=== PATIENT | male | born 1945 | race Caucasian/White ===

== ENCOUNTER 2016-12-10 10:13 | Outpatient (CLI) | payer OTHER ==
[~2016-12-10 10:13] MED LIST: ADVIL200 M1 PO; ASPIRIN EC81 MG PO; CLARITIN D PO; FLOMAX0.4 MG PO; HYDROCHLOROTHIA25 MG PO; LISINOPRIL10 MG PO; MULTIPLE VITAMIN PO; NITROSTAT0.4 MG SL; PERCOCET1 TA1 PO; PRINIVIL5 MG PO; PROTONIX40 MG PO; SIMVASTATIN40 MG PO; VITAMIN D-31000 UNIT PO
--- NOTE | 2016-12-10 11:32 | DIAGNOSTIC IMAGING REPORT ---
PROCEDURE: CT THORAX WITH CONTRAST INDICATION: LUNG CANCER TECHNIQUE: of Isovue 300 was injected intravenously and axial images were obtained of the chest with coronal and sagittal reformations. COMPARISON: Left chest wall ultrasound 11/13/2016 CT chest/abdomen/pelvis 10/06/2016. FINDINGS: Status post left upper lobectomy. Progression of 2.2 cm (previously 1.5 cm) right lower lobe superior segment necrotic nodule. There are no new pulmonary nodules. Decreasing small left pleural effusion. There has been reaccumulation of the fluid in the 11.5 cm left chest wall cystic mass ( previously 10.2 cm). There is partial bony erosion of the left seventh and eighth ribs. Stable right-sided Port-A-Cath. Minor atherosclerosis of the aorta. Dense coronary atherosclerosis. Heart size is normal . No pericardial effusion. Mild to moderate hiatal hernia containing fat. IMPRESSION: 1. Status post left upper lobectomy with improved small left pleural effusion 2. Progression of right lower lobe necrotic mass suspicious for metastatic lesion 3. Progression of left chest wall cystic mass with erosion of the left seventh and eighth ribs
== END 2016-12-10 23:00 ==
LOC: CT SRH 10:13
DX: C34.92 Malignant neoplasm of unspecified part of left bronchus or lung (principal); R22.2 Localized swelling, mass and lump, trunk; J90 Pleural effusion, not elsewhere classified

== ENCOUNTER 2016-12-16 23:03 | Inpatient (IN) | payer OTHER ==
[~2016-12-16] VITALS: Ht 182.9 cm; Wt 122.5 kg
[2016-12-17] VITALS (17 sets, daily range): BP systolic 75–113; BP diastolic 41–56
--- NOTE | 2016-12-17 00:48 | DIAGNOSTIC IMAGING REPORT ---
PROCEDURE: XR CHEST 1 VIEW INDICATION: CHEST PAIN, initial encounter TECHNIQUE: Portable AP view 11:50 p.m. COMPARISON: Chest x-ray 08/04/2016 FINDINGS: Right subclavian Port-A-Cath with the tip in the subclavian vein. Left upper lobectomy. Poor inspiration with mild bibasilar atelectasis. Heart size and part vessels are normal. Thorax is normal. IMPRESSION: 1. Left upper lobectomy 2. Poor inspiration with bibasilar atelectasis 3. Stable right subclavian catheter with the tip in the subclavian vein
--- NOTE | 2016-12-17 05:08 | ED CLINICAL REPORT ---
Clinical Report - Physicians/Mid Levels [facility] [address] [place] [address] 12/16/2016 23:03 Patient: JONES YOUNG Time Seen: 23:15. Arrived- By private vehicle. Historian- patient. History limited by vague historian. HISTORY OF PRESENT ILLNESS Chief Complaint: FEVER and CHILLS. This started last night and is still present. It was abrupt in onset and has been constant. (patient has a history of lung cancer which his believes is a type of squamous cell cancer. He was diagnosed with this 5 or 6 months ago. Initially, he did a course of chemotherapy with uncertain agents that was not successful. He then did a course of immune therapy also with limited results he has now been started on a new chemotherapeutic agent and had his first treatment yesterday. He has been feeling "shaky" weak and has had chills and sweats.). REVIEW OF SYSTEMS The patient has had fever and chills and experienced sweats. No calf pain, pedal edema, palpitations, abdominal pain or constipation. No diarrhea, nausea or vomiting. He has had a moderate nonproductive cough. All systems otherwise negative, except as recorded above. PAST HISTORY PCP - [facility]. Problems: Cancer. Tension-Type Headache. Chest Pain. Gastroesophageal Reflux. Benign Prostatic Hypertrophy. Hypercholesterolemia. Hypertension. Syncope. Lower Extremity Pain. Gastroesophageal Reflux Disease. Additional Surgeries: Cardiac Catheterization. Coronary Artery Bypass Graft. Hemorrhoidectomy. Hernia Repair. Knee Prosthesis. Knee Surgery. Stent. Total Knee 09/13. Umbilical Hernia Repair. Medications: Tamsulosin HCl Oral 0.4 mg, at bedtime. Vit D3 - 2000iu daily . ASA 81 mg, daily. Claritin-D 24 Hour Oral. Hydrochlorothiazide Oral 25 mg, daily. Ibuprofen Oral 400 mg, PRN, last dose 0530. Lisinopril Oral 20 mg, in an and 10mg in pm. Protonix Oral 40 mg, daily. Simvastatin Oral 40 mg, at bedtime. Allergies: Aluminum. (hives, welts) Doxycycline.(hives) PCN.(hives). SOCIAL HISTORY Smoker- current status unknown. No alcohol use or drug use. Is a local resident. He lives with spouse. FAMILY HISTORY Heart disease in first-degree relative (mother); cancer in first-degree relative (sibling). ADDITIONAL NOTES The nursing notes have been reviewed. PHYSICAL EXAM Vital Signs: 12/16/2016 23:10 BP: 103/58. HR: 130. RR: 32. O2 saturation: 94%. Temp: 98.5 F. Have been reviewed. Appearance: Alert. Eyes: Pupils equal, round and reactive to light. ENT: Extensive dental decay. Pharynx normal. Neck: Neck supple. CVS: Normal heart rate and rhythm. Heart sounds normal. Respiratory: No respiratory distress. Breath sounds normal. Abdomen: No visible injury. Soft and nontender. Bowel sounds normal. No organomegaly. No mass. Obese. Back: Normal inspection. Skin: Skin warm and dry. (patient was noted to have a large softball sized tender mass without erythema or increased warmth over the left chest wall at the anterior axillary line). Extremities: Extremities exhibit normal ROM. No calf tenderness. LABS, X-RAYS, AND EKG EKG: Normal sinus rhythm. Rate: 78. Q waves in lead II, III and aVF. Non-specific ST segment / T wave abnormalities. EKG unchanged when compared with prior EKG. (no significant changes when compared with 04 August 2016). The study has been independently viewed by me. Chest X-ray: Mildly elevated hemidiaphragm on the left (S/P L upper lobectomy). (Port-A-Cath in place). Technique: poor inspiration, rotated. The X-rays were independently viewed by me. A comparison with prior films reveals that the findings are unchanged. Laboratory Tests: CPK: (NIC: 12/17/2016 00:01) ( MsgRcvd 12/17/2016 04:51) Final results Test Result Flag Units (Reference) CPK 44 U/L (24-260) TROPONIN I <0.05 L ng/mL (0.00-1.5) TROPONIN REFERENCE RANGE:<0.1 NEGATIVE0.1-1.5 INDETERMINANT>1.5 POSITIVE Lactate, Serum: (NIC: 12/17/2016 00:15) ( MsgRcvd 12/17/2016 00:56) Final results Test Result Flag Units (Reference) LACTIC ACID 1.4 mmol/L (0.4-2.0) UA-Culture if indicated: (NIC: 12/16/2016 03:48) ( [facility] 12/17/2016 04:02) Final results Test Result Flag Units (Reference) URINE COLOR YELLOW URINE APPEARANCE CLEAR URINE GLUCOSE NEGATIVE (NEGATIVE) URINE BILIRUBIN NEGATIVE (NEGATIVE) URINE KETONE NEGATIVE (NEGATIVE) URINE SPECIFIC GRAVITY 1.025 (1.010-1.030) URINE PH 5.5 (5.0-8.0) URINE PROTEIN TRACE (NEGATIVE) URINE UROBILINOGEN 0.2 EU/dL (0.2-1.0) URINE NITRITE NEGATIVE (NEGATIVE) URINE BLOOD 2+ (NEGATIVE) URINE LEUK ESTERASE NEGATIVE (NEGATIVE) URINE RBC 3-5 rbc/hpf (0-1) URINE WBC 0-1 wbc/hpf (0-1) URINE EPITHELIAL CELLS RARE EPI/hpf (0-5) URINE BACTERIA TRACE (<1+) (NONE SEEN) URINE COMMENT CULT NOT INDICATED 1+ MUCUSURINE CULTURES ARE SET-UP BASED ON THE FOLLOWING CRITERIA:POSITIVE NITRITEPOSITIVE LEUKOCYTE ESTERASEGREATER THAN 10 WHITE BLOOD CELLSMODERATE (2+) OR GREATER BACTERIA CBC w Diff: (NIC: 12/16/2016 23:30) ( [facility] 12/17/2016 02:40) Final results Test Result Flag Units (Reference) WHITE BLOOD COUNT 18.7 H K/uL (4.5-11.5) RED BLOOD COUNT 4.54 M/uL (4.50-5.90) HEMOGLOBIN 12.1 L gm/dL (13.5-17.5) HEMATOCRIT 37.1 L % (41.0-53.0) MEAN CELL VOLUME 82 fL (80-100) MEAN CORPUSCULAR HGB 27 pg (26-34) MEAN CORPUSCULAR HGB CONC 33 g/dL (31-37) RED CELL DISTRIBUTION WIDTH 14.2 % (11.6-14.8) PLATELET COUNT 317 K/uL (150-400) LYMPH % 5.5 L % (25-40) MONO % 2.3 L % (3-14) GRANULOCYTE % 92.2 POLY % 90 H % (50-75) BAND % 3 % (0-8) LYMPH 6 L % (25-40) MONO 1 L % (3-14) EOSINOPHIL % 0 % (0-4) BASOPHIL % 0 % (0-2) METAMYELOCYTE % 0 % (0-1) MYELOCYTE 0 % (0-1) OTHER CELL TYPE 0 PT with INR: (NIC: 12/16/2016 23:30) ( [facility] 12/16/2016 23:44) Final results Test Result Flag Units (Reference) INR 1.0 (0.8-1.2) Low Intensity Therapy: INR 1.5-2.0 PT range 18.5-23.1Mod.Intensity Therapy: INR 2.0-3.0 PT range 23.1-31.5High Intensity Therapy: INR 2.5-3.5 PT range 27.4-35.5High Intensity Therapy 2: INR 3.0-4.0 PT range 31.5-39.3 APTT 30 SECONDS (24-34) CMP: (NIC: 12/16/2016 23:30) ( [facility] 12/16/2016 23:53) Final results Test Result Flag Units (Reference) GLUCOSE 103 mg/dL (70-110) BUN 16 mg/dL (7-18) CREATININE 1.2 mg/dL (0.6-1.3) Estimated GFR >60 mL/min Estimated GFR- >60 mL/min Note: Persistent reduction over 3 months in eGFR<60 mL/min/1.73 m2 defines CKD. Patients with eGFR values>=60 mL/min/1.73 m2 may also have CKD if evidence ofpersistent proteinuria. Additional information may be foundat www.[email or web address].org. SODIUM 134 L mmol/L (136-145) POTASSIUM 3.5 mmol/L (3.5-5.1) CHLORIDE 103 mmol/L (98-107) CARBON DIOXIDE 25 mmol/L (21-32) CALCIUM 8.7 mg/dL (8.5-10.1) TOTAL PROTEIN 6.3 L g/dL (6.4-8.2) ALBUMIN 2.7 L g/dL (3.3-5.0) BILIRUBIN, TOTAL 0.4 mg/dL (0.0-1.0) ALKALINE PHOSPHATASE 81 U/L (46-116) AST (SGOT) 20 U/L (15-37) ALT (SGPT) 22 U/L (12-78) LIPASE 90 U/L (73-393) AMYLASE 21 L U/L (25-115) . PROGRESS AND PROCEDURES Course of Care: Patient is stable. Critical care performed (100 minutes). Time includes: direct patient care, patient reassessment, coordination of patient care, interpretation of data (laboratory data, pulse oximetry, chest xrays and prior electrocardiograms), review of patient's medical records, medical consultation, family consultation regarding treatment decisions and documentation of patient care. Discussed case with hospitalist, (Cinthya). Reviewed test results and need for additional work-up. Agreed upon treatment plan, need for patient follow-up and decision to admit. Health care provider will see patient in hospital. Consult obtained from oncology. Dr Carpenter for [facility]. Case discussed. Phone consult only. Additional history sought. Dr. Carpenter he says that the patient's chemotherapy is Taxotere. Old medical records ordered. Disposition orders written (in [employer]). Disposition: Admitted to the Critical Care Unit. CLINICAL IMPRESSION Hypotension. Hypovolemia. Leukocytosis. Lung cancer. (Electronically signed by Miguel A Marroquin MD 12/17/2016 7:58)
--- NOTE | 2016-12-17 05:08 | ED ORDER SUMMARY ---
..... Patient: JONES YOUNG OrderSheet [facility] VisitID: [id number] [address] [place] [address] 71y, M Registration Date/Time: 12/16/2016 ORDER SHEET Weight: 115.6 kg Allergies: Aluminum, Doxycycline, PCN GENERAL ORDERS: CBC w Diff Urgent (23:15 12/16/2016 Xochitl AUGUSTE) (Ack 23:17 Emmy ER Tech1) (23:37 EBonham) CMP Urgent (23:15 12/16/2016 Xochitl AUGUSTE) (Ack 23:17 Josepha ER Tech1) (23:37 EBonham) PT with INR Urgent (23:15 12/16/2016 Xochitl AUGUTSE) (Ack 23:17 Emmy ER TechTara) (23:37 EBonham) PTT Urgent (23:15 12/16/2016 Xochitl AUGUSTE) (Ack 23:17 Emmy ER TechTara) (23:37 EBonham) Amylase Urgent (23:15 12/16/2016 Xochitl AUGUSTE) (Ack 23:17 Emmy ER Tech1) (23:37 EBonham) Lipase Urgent (23:15 12/16/2016 Xochitl AUGUSTE) (Ack 23:17 Emmy ER Tech1) (23:37 EBonham) UA-Culture if indicated Urgent (23:15 12/16/2016 Xochitl AUGUSTE) (Ack 23:17 Josepha ER Tech1) (3:56 EBonham) Blood Culture (No) (N/A) Urgent (23:40 12/16/2016 Xochitl AUGUSTE) (Ack 23:45 AMcQuoid ER Tech1) (4:27 AMcQuoid ER Tech1) Chest 1V Urgent (23:49 12/16/2016 Xochitl AUGUSTE) (Ack 23:50 AMcQuoid ER Tech1) (0:07 [place]) Lactate, Serum Urgent (00:05 12/17/2016 Xochitl AUGUSTE) (Ack 0:06 AMcQuoid ER Tech1) (4:27 AMcQuoid ER Tech1) Vitals - Orthostatic (00:10 12/17/2016 Xochitl AUGUSTE) (0:13 EBonham) - (manual differential) (02:05 12/17/2016 Xochitl AUGUSTE) (2:06 AMcQuoid ER Tech1) CPK Urgent (04:28 12/17/2016 Xochitl AUGUSTE) (Ack 4:34 AMcQuoid ER Tech1) (5:02 AMcQuoid ER Tech1) Troponin-I Urgent (04:28 12/17/2016 Xochitl AUGUSTE) (Ack 4:34 AMcQuoid ER Tech1) (5:02 AMcQuoid ER Tech1) EKG - ER Stat (04:28 12/17/2016 Xochitl AUGUSTE) (Ack 4:30 AMcQuoid ER Tech1) (5:02 AMcQuoid ER Tech1) PCT (Procalcitonin) Urgent (05:07 12/17/2016 Xochitl AUGUSTE) (Ack 5:10 TLewis R.N.) CRP Urgent (05:07 12/17/2016 Xochitl AUGUSTE) (Ack 5:12 AMcQuoid ER Tech1) MEDICATION ORDERS: IV FLUIDS: IV Saline Lock (23:15 12/16/2016 Xochitl AUGUSTE) (Ack 23:30 RCollier R.N.) (23:37 EBonham) Dilaudid IV 1 mg (HIGH ALERT MEDICATION, NOW) (23:56 12/16/2016 Xochitl AUGUSTE) (0:12 EBonham) Zofran IV 4 mg (NOW) (23:56 12/16/2016 Xochitl AUGUSTE) (0:12 EBonham) IV NS : initial bolus 500 mL (1000 mL/hr), then 125 mL/hr for 4h (NOW); Urgent (23:56 12/16/2016 Xochitl AUGUSTE) (0:13 EBonham) (Cancelled: Other1:39 Xochitl AUGUSTE) IV NS : initial bolus 500 mL (1000 mL/hr), then 1000 mL/hr for X1 (NOW); Stat (01:39 12/17/2016 Chai verbal order read back to Xochitl AUGUSTE) (1:46 EBonham) IV NS : initial bolus 1000 mL (1000 mL/hr), then 1000 mL/hr for 4h (NOW); Urgent (01:41 12/17/2016 Xochitl AUGUSTE) (1:45 EBonham) IV NS with Normal Saline 1 Liter: initial bolus 1000 mL (1000 mL/hr), then 1000 mL/hr for X1 (NOW) (02:47 12/17/2016 Chai verbal order read back to Xochitl AUGUSTE) (2:48 Chai) Ceftriaxone IV 2 gm/50mL (NOW) (04:32 12/17/2016 Xochitl AUGUSTE) (Ack 4:34 RCollier R.N.) (4:54 Chai) IV NS with Normal Saline 1 Liter: initial bolus none -, then 150 mL/hr (NOW) (04:55 12/17/2016 Chai verbal order read back to Xochitl AUGUSTE) (4:57 Chai) ORDER SHEET NOTES: [Electronically signed by Olga Quinn (06:32 12/17/2016)] [Electronically signed by Miguel A Marroquin MD (07:58 12/17/2016)] [Electronically locked/signed by Olga Quinn (06:32 12/17/2016)]
--- NOTE | 2016-12-17 05:08 | ED NURSING NOTES ---
Clinical Report - Nurses [facility] [address] [place] [address] 12/16/2016 23:03 Patient: JONES YOUNG TRIAGE Triage time 2305. Acuity: LEVEL 3. Chief Complaint: FEVER, CHILLS, SWEATS and "NOT FEELING WELL" and FATIGUE, "HURTS ALL OVER" and LACK OF APPETITE. Alert. No acute distress. (pain). --23:13 Olga Quinn 23:10 12/16/16. BP: 103/58. HR: 130. RR: 32. O2 saturation: 94%. Temp: 98.5 F. Pain level now 08/25. --23:13 Olga Quinn. Weight: 115.6 kg. Height/Length: 72 inches. BMI: 34.6. --23:10 Olga Quinn. Medications ASA 81 mg, daily. Claritin-D 24 Hour Oral. Hydrochlorothiazide Oral 25 mg, daily. Ibuprofen Oral 400 mg, PRN, last dose 0530. Lisinopril Oral 20 mg, in an and 10mg in pm. Protonix Oral 40 mg, daily. Simvastatin Oral 40 mg, at bedtime. --23:11 Olga Quinn Tamsulosin HCl Oral 0.4 mg, at bedtime. Vit D3 - 2000iu daily . --23:11 Olga Quinn. Allergies Aluminum. (hives, welts) Doxycycline.(hives) PCN.(hives) --23:11 Olga Quinn. History Arrived by private vehicle. Historian: patient and family. Accompanied by family. This started last night. 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 (extra pain meds). PAST MEDICAL HX: Cancer. SOCIAL HX: Never smoker. 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 --23:14 Olga Quinn. PROBLEMS: Tension-Type Headache. Chest Pain. Gastroesophageal Reflux. Benign Prostatic Hypertrophy. Hypercholesterolemia. Hypertension. Immunizations. --23:12 Olga Quinn Cancer [Resolved]. --23:12 Olga Quinn. ADDITIONAL SURGERIES: Cardiac Catheterization. Coronary Artery Bypass Graft. Hemorrhoidectomy. Hernia Repair. Knee Prosthesis. Knee Surgery. Stent. Total Knee 09/13. Umbilical Hernia Repair. --23:12 Olga Quinn. Interventions ID band on patient. To treatment room. --23:13 Olga Quinn. PHYSICAL ASSESSMENT Ambulatory to room. GENERAL / NEURO / PSYCH: Alert. Oriented X 4. Appears in pain, anxious and in distress. HEENT: Pupils equal, round and reactive to light. Mucous membranes are pink. RESPIRATORY: Respirations not labored. Chest wall tenderness. Breath sounds within normal limits. CVS: Cardiac rhythm: sinus tachycardia. Capillary refill less than 2 seconds. Pulses within normal limits. GI / : Abdominal distention. Normal bowel sounds. SKIN: Skin intact. Skin is warm and dry. Normal skin turgor. --23:15 Olga Quinn. NURSING PROGRESS NOTES Patient gowned. Reassurance given. Call light placed in reach. Side rails up. Bed placed in lowest position. Brakes of bed on. Patient ready for evaluation- chart flagged and ED physician notified. --23:15 Olga Quinn 23:37 12/16/2016 Site #1 started via IV in the left forearm with an 20g angiocath, with aseptic technique and good blood return; one attempt. Blood drawn: rainbow set. Labeled in the presence of the patient and sent to the lab. Saline lock flushed with 10 mL saline. --23:37 Olga Quinn 00:12 12/17/2016 Dilaudid (HYDROmorphone HCl PF) IVP 1 mg given. via site #1. Allergies verified, confirmed 5 rights and sedative warning given to the patient and patient's family. IV patency established. IV site checked: no pain, redness, or swelling. IV flushed thoroughly pre- and post-medication administration. IVP given by RN. --00:12 Olga Quinn 00:12 12/17/2016 Zofran (Ondansetron HCl) IVP 4 mg given. via site #1. Allergies verified and confirmed 5 rights. IV patency established. IV site checked: no pain, redness, or swelling. IV flushed thoroughly pre- and post-medication administration. IVP given by RN. --00:12 Olga Quinn 00:13 12/17/2016 Started bag #1 500 mL IV Fluids IV NS (Saline); bolus of 500 mL over 30 minute(s) via site #1. Allergies verified and confirmed 5 rights. IV patency established. IV site checked: no pain, redness, or swelling. IV flushed thoroughly pre- and post-medication administration. --00:13 Olga Quinn ( Pt was sat upp rapidly for chest x ray, pt became pale diaphoretic, eyes rolled back, slow to respond, pt sts "I don't feel good", pt immediatley laid down, b/p 73/41 HR 110, pt some better after laying flat, b/p 86/48, IVF wide open, Provider made aware, Provider req full orthostatic vitals, RN suggested to use sitting as pt would be unable to stand). --00:15 Olga Quinn 00:15 12/17/16. BP: 73/41 taken while sitting. HR: 110. --00:16 Olga Quinn 00:16 12/17/16. BP: 86/48. HR: 89. --00:16 Olga Quinn ( Pt continues to remain hypotensive, 500ml bolus is in, still no improvement, pt very tired but will arouse to stimulation and is oriented when he awakes but keeps his eyes closed, 1 l NS hung to try to make progress on B/P). --00:43 Olga Quinn 00:39 12/17/16. BP: 90/48. HR: 90. RR: 12. O2 saturation: 94%. Pain level now 8/10. --00:43 Olga Quinn The patient is calm and resting quietly. --01:07 Olga Quinn 01:06 12/17/16. BP: 87/45. HR: 88. RR: 14. O2 saturation: 93%. --01:07 Olga Quinn 01:32 12/17/16. BP: 92/47 taken while lying. HR: 89. --01:32 Olga Quinn 01:32 12/17/16. BP: 90/48 taken while sitting. HR: 96. --01:32 Olga Quinn 01:32 12/17/16. BP: 93/40 taken while standing. HR: 105. --01:33 Olga Quinn ( Pt doing much better laying flat, more conversive, skin pink, pt went pale when he was sat up for posturals, felt "ok", when pt was stood up he was completely paled, swaying, c/o feeling sick and tolerated poorly, pt back in bed, at bedside, pt encouraged to give UA, pt feels much better now). --01:35 Olga Quinn <<STRICKEN ENTRY-- 01:17. ( 500 ml bolus in, still no b/p improvement, Provider aware when informed of syncopal episode). --01:42 Olga Quinn --END STRIKE>> Correction --01:43 Olga Quinn 00:35 12/17/2016 IV Fluids IV NS Discontinued: bag #1 completed. Total amount infused: 500 mL. --01:44 Olga Quinn 00:40 12/17/2016 Started bag #2 1000 mL IV Fluids IV NS (Saline); bolus of 1000 mL wide open via site #1 --01:45 Olga Quinn 01:40 12/17/2016 IV Fluids IV NS Discontinued: bag #2 completed. Total amount infused: 1000 mL. --01:46 Olag Quinn 01:46 12/17/2016 Started bag #3 500 mL IV Fluids IV NS (Saline); bolus of 500 mL wide open via site #1 --01:46 Olga Quinn 02:12 12/17/2016 IV Fluids IV NS Discontinued: bag #3 completed. Total amount infused: 500 mL. --02:12 Olga Quinn ( Pt given po Gatorade). --02:12 Olga Quinn 02:35 12/17/16. BP: 87/45. HR: 81. RR: 16. O2 saturation: 99%. --02:36 Olga Quinn ( Pt asking to lay down more, blood pressure noted to be going back down, attempted to give urine but was unable). --02:36 Olga Quinn ( at RN station, sts he "doesn't feel good again", b/p continually trending down again, Provider aware, orders for NS 1 l for a total of 3l). --02:46 Olga Quinn 02:45 12/17/16. BP: 86/49. HR: 81. RR: 16. --02:46 Olga Quinn 02:48 12/17/2016 Started bag #1 1000 mL IV Fluids IV NS (Saline); bolus of 1000 mL wide open via site #1 --02:48 Olga Quinn ( Bladder scanned for 315ml, pt up at bedside, able to urinate 300ml, UA to lab). --03:49 Olga Quinn 03:56 12/17/2016 IV Fluids IV NS Discontinued: bag #4 infused. Total amount infused: 1000 mL. --03:56 Olga Quinn 04:54 12/17/2016 Started 2 gm of Ceftriaxone IVPB in bag #1 50 mL; at 150 mL/hr over 30 minute(s) via site #1; Allergies verified and confirmed 5 rights. IV patency established. IV site checked: no pain, redness, or swelling. IV flushed thoroughly pre- and post-medication administration. --04:54 Olga Quinn 04:57 12/17/2016 Started bag #1 1000 mL IV Fluids IV NS (Saline); at 150 mL/hr over 6 hour(s) via site #1 --04:57 Olga Quinn EKG was ordered, performed by a nurse and shown to the ED physician. --04:59 Olga Quinn 05:09 12/17/2016 Ceftriaxone IVPB Discontinued: bag #1 infused upon admission. Total amount infused: 50 mL. IV patency established. IV site checked: no pain, redness, or swelling. IV flushed thoroughly. --05:09 Miguel Angel Cain R.N. Reassessment after medication administered. He is resting quietly and has had no adverse reaction. ( home to rest, phone # [phone], pt resting quietly). --05:23 Olga Quinn 05:22 12/17/16. BP: 89/42. HR: 76. RR: 16. O2 saturation: 98%. Pain level now 8/10. --05:23 Olga Quinn 05:00 12/17/16. BP: 89/40. HR: 83. --05:25 Olga Quinn 04:30 12/17/16. BP: 96/45. HR: 82. --05:26 Olga Quinn 03:40 12/17/16. BP: 90/40. HR: 82. --05:26 Olga Quinn 06:32 12/17/2016 IV Fluids IV NS Discontinued: bag #4 STOPPED upon admission. Total amount infused: 250 mL. --06:32 Olga Quinn. DISPOSITION / DISCHARGE Report was given to a nurse via a phone call. Report included patient's care, treatment, medications, reviewed medication reconcilliation, and condition (including any recent changes or anticipated changes). All questions were answered. Report was acknowledged and care was transferred. Patient's personal items; items were placed in belongings bag and transported with the patient. --06:06 Olga Quinn Departure time: 0610. --06:06 Olga Quinn. Locked/Released at 12/17/2016 6:32 by Olga Quinn,
--- NOTE | 2016-12-17 05:08 | ED CLINICAL REPORT ---
Clinical Report - Physicians/Mid Levels [facility] [address] [place] [address] 12/16/2016 23:03 Patient: JONES YOUNG Time Seen: 23:15. Arrived- By private vehicle. Historian- patient. History limited by vague historian. HISTORY OF PRESENT ILLNESS Chief Complaint: FEVER and CHILLS. This started last night and is still present. It was abrupt in onset and has been constant. (patient has a history of lung cancer which his believes is a type of squamous cell cancer. He was diagnosed with this 5 or 6 months ago. Initially, he did a course of chemotherapy with uncertain agents that was not successful. He then did a course of immune therapy also with limited results he has now been started on a new chemotherapeutic agent and had his first treatment yesterday. He has been feeling "shaky" weak and has had chills and sweats.). REVIEW OF SYSTEMS The patient has had fever and chills and experienced sweats. No calf pain, pedal edema, palpitations, abdominal pain or constipation. No diarrhea, nausea or vomiting. He has had a moderate nonproductive cough. All systems otherwise negative, except as recorded above. PAST HISTORY PCP - [facility]. Problems: Cancer. Tension-Type Headache. Chest Pain. Gastroesophageal Reflux. Benign Prostatic Hypertrophy. Hypercholesterolemia. Hypertension. Syncope. Lower Extremity Pain. Gastroesophageal Reflux Disease. Additional Surgeries: Cardiac Catheterization. Coronary Artery Bypass Graft. Hemorrhoidectomy. Hernia Repair. Knee Prosthesis. Knee Surgery. Stent. Total Knee 09/13. Umbilical Hernia Repair. Medications: Tamsulosin HCl Oral 0.4 mg, at bedtime. Vit D3 - 2000iu daily . ASA 81 mg, daily. Claritin-D 24 Hour Oral. Hydrochlorothiazide Oral 25 mg, daily. Ibuprofen Oral 400 mg, PRN, last dose 0530. Lisinopril Oral 20 mg, in an and 10mg in pm. Protonix Oral 40 mg, daily. Simvastatin Oral 40 mg, at bedtime. Allergies: Aluminum. (hives, welts) Doxycycline.(hives) PCN.(hives). SOCIAL HISTORY Smoker- current status unknown. No alcohol use or drug use. Is a local resident. He lives with spouse. FAMILY HISTORY Heart disease in first-degree relative (mother); cancer in first-degree relative (sibling). ADDITIONAL NOTES The nursing notes have been reviewed. PHYSICAL EXAM Vital Signs: 12/16/2016 23:10 BP: 103/58. HR: 130. RR: 32. O2 saturation: 94%. Temp: 98.5 F. Have been reviewed. Appearance: Alert. Eyes: Pupils equal, round and reactive to light. ENT: Extensive dental decay. Pharynx normal. Neck: Neck supple. CVS: Normal heart rate and rhythm. Heart sounds normal. Respiratory: No respiratory distress. Breath sounds normal. Abdomen: No visible injury. Soft and nontender. Bowel sounds normal. No organomegaly. No mass. Obese. Back: Normal inspection. Skin: Skin warm and dry. (patient was noted to have a large softball sized tender mass without erythema or increased warmth over the left chest wall at the anterior axillary line). Extremities: Extremities exhibit normal ROM. No calf tenderness. LABS, X-RAYS, AND EKG EKG: Normal sinus rhythm. Rate: 78. Q waves in lead II, III and aVF. Non-specific ST segment / T wave abnormalities. EKG unchanged when compared with prior EKG. (no significant changes when compared with 04 August 2016). The study has been independently viewed by me. Chest X-ray: Mildly elevated hemidiaphragm on the left (S/P L upper lobectomy). (Port-A-Cath in place). Technique: poor inspiration, rotated. The X-rays were independently viewed by me. A comparison with prior films reveals that the findings are unchanged. Laboratory Tests: CPK: (NIC: 12/17/2016 00:01) ( MsgRcvd 12/17/2016 04:51) Final results Test Result Flag Units (Reference) CPK 44 U/L (24-260) TROPONIN I <0.05 L ng/mL (0.00-1.5) TROPONIN REFERENCE RANGE:<0.1 NEGATIVE0.1-1.5 INDETERMINANT>1.5 POSITIVE Lactate, Serum: (NIC: 12/17/2016 00:15) ( MsgRcvd 12/17/2016 00:56) Final results Test Result Flag Units (Reference) LACTIC ACID 1.4 mmol/L (0.4-2.0) UA-Culture if indicated: (NIC: 12/16/2016 03:48) ( [facility] 12/17/2016 04:02) Final results Test Result Flag Units (Reference) URINE COLOR YELLOW URINE APPEARANCE CLEAR URINE GLUCOSE NEGATIVE (NEGATIVE) URINE BILIRUBIN NEGATIVE (NEGATIVE) URINE KETONE NEGATIVE (NEGATIVE) URINE SPECIFIC GRAVITY 1.025 (1.010-1.030) URINE PH 5.5 (5.0-8.0) URINE PROTEIN TRACE (NEGATIVE) URINE UROBILINOGEN 0.2 EU/dL (0.2-1.0) URINE NITRITE NEGATIVE (NEGATIVE) URINE BLOOD 2+ (NEGATIVE) URINE LEUK ESTERASE NEGATIVE (NEGATIVE) URINE RBC 3-5 rbc/hpf (0-1) URINE WBC 0-1 wbc/hpf (0-1) URINE EPITHELIAL CELLS RARE EPI/hpf (0-5) URINE BACTERIA TRACE (<1+) (NONE SEEN) URINE COMMENT CULT NOT INDICATED 1+ MUCUSURINE CULTURES ARE SET-UP BASED ON THE FOLLOWING CRITERIA:POSITIVE NITRITEPOSITIVE LEUKOCYTE ESTERASEGREATER THAN 10 WHITE BLOOD CELLSMODERATE (2+) OR GREATER BACTERIA CBC w Diff: (NIC: 12/16/2016 23:30) ( [facility] 12/17/2016 02:40) Final results Test Result Flag Units (Reference) WHITE BLOOD COUNT 18.7 H K/uL (4.5-11.5) RED BLOOD COUNT 4.54 M/uL (4.50-5.90) HEMOGLOBIN 12.1 L gm/dL (13.5-17.5) HEMATOCRIT 37.1 L % (41.0-53.0) MEAN CELL VOLUME 82 fL (80-100) MEAN CORPUSCULAR HGB 27 pg (26-34) MEAN CORPUSCULAR HGB CONC 33 g/dL (31-37) RED CELL DISTRIBUTION WIDTH 14.2 % (11.6-14.8) PLATELET COUNT 317 K/uL (150-400) LYMPH % 5.5 L % (25-40) MONO % 2.3 L % (3-14) GRANULOCYTE % 92.2 POLY % 90 H % (50-75) BAND % 3 % (0-8) LYMPH 6 L % (25-40) MONO 1 L % (3-14) EOSINOPHIL % 0 % (0-4) BASOPHIL % 0 % (0-2) METAMYELOCYTE % 0 % (0-1) MYELOCYTE 0 % (0-1) OTHER CELL TYPE 0 PT with INR: (NIC: 12/16/2016 23:30) ( [facility] 12/16/2016 23:44) Final results Test Result Flag Units (Reference) INR 1.0 (0.8-1.2) Low Intensity Therapy: INR 1.5-2.0 PT range 18.5-23.1Mod.Intensity Therapy: INR 2.0-3.0 PT range 23.1-31.5High Intensity Therapy: INR 2.5-3.5 PT range 27.4-35.5High Intensity Therapy 2: INR 3.0-4.0 PT range 31.5-39.3 APTT 30 SECONDS (24-34) CMP: (NIC: 12/16/2016 23:30) ( [facility] 12/16/2016 23:53) Final results Test Result Flag Units (Reference) GLUCOSE 103 mg/dL (70-110) BUN 16 mg/dL (7-18) CREATININE 1.2 mg/dL (0.6-1.3) Estimated GFR >60 mL/min Estimated GFR- >60 mL/min Note: Persistent reduction over 3 months in eGFR<60 mL/min/1.73 m2 defines CKD. Patients with eGFR values>=60 mL/min/1.73 m2 may also have CKD if evidence ofpersistent proteinuria. Additional information may be foundat www.[email or web address].org. SODIUM 134 L mmol/L (136-145) POTASSIUM 3.5 mmol/L (3.5-5.1) CHLORIDE 103 mmol/L (98-107) CARBON DIOXIDE 25 mmol/L (21-32) CALCIUM 8.7 mg/dL (8.5-10.1) TOTAL PROTEIN 6.3 L g/dL (6.4-8.2) ALBUMIN 2.7 L g/dL (3.3-5.0) BILIRUBIN, TOTAL 0.4 mg/dL (0.0-1.0) ALKALINE PHOSPHATASE 81 U/L (46-116) AST (SGOT) 20 U/L (15-37) ALT (SGPT) 22 U/L (12-78) LIPASE 90 U/L (73-393) AMYLASE 21 L U/L (25-115) . PROGRESS AND PROCEDURES Course of Care: Patient is stable. Critical care performed (100 minutes). Time includes: direct patient care, patient reassessment, coordination of patient care, interpretation of data (laboratory data, pulse oximetry, chest xrays and prior electrocardiograms), review of patient's medical records, medical consultation, family consultation regarding treatment decisions and documentation of patient care. Discussed case with hospitalist, (Cinthya). Reviewed test results and need for additional work-up. Agreed upon treatment plan, need for patient follow-up and decision to admit. Health care provider will see patient in hospital. Consult obtained from oncology. Dr Carpenter for Alon. Case discussed. Phone consult only. Additional history sought. Dr. Carpenter he says that the patient's chemotherapy is Taxotere. Old medical records ordered. Disposition orders written (in [employer]). Disposition: Admitted to the Critical Care Unit. CLINICAL IMPRESSION Hypotension. Hypovolemia. Leukocytosis. Lung cancer. (Electronically signed by Miguel A Marroquin MD 12/17/2016 7:58)
--- NOTE | 2016-12-17 05:08 | ED ORDER SUMMARY ---
..... Patient: JONES YOUNG OrderSheet [facility] VisitID: [id number] [address] [place] [address] 71y, M Registration Date/Time: 12/16/2016 ORDER SHEET Weight: 115.6 kg Allergies: Aluminum, Doxycycline, PCN GENERAL ORDERS: CBC w Diff Urgent (23:15 12/16/2016 Xochitl AUGUSTE) (Ack 23:17 Emmy ER Tech1) (23:37 EBonham) CMP Urgent (23:15 12/16/2016 Xochitl AUGUSTE) (Ack 23:17 Josepha ER Tech1) (23:37 EBonham) PT with INR Urgent (23:15 12/16/2016 Xochitl AUGUSTE) (Ack 23:17 Emmy ER TechTara) (23:37 EBonham) PTT Urgent (23:15 12/16/2016 Xochitl AUGUSTE) (Ack 23:17 Emmy ER TechTara) (23:37 EBonham) Amylase Urgent (23:15 12/16/2016 Xochitl AUGUSTE) (Ack 23:17 Emmy ER Tech1) (23:37 EBonham) Lipase Urgent (23:15 12/16/2016 Xochitl AUGUSTE) (Ack 23:17 Emmy ER Tech1) (23:37 EBonham) UA-Culture if indicated Urgent (23:15 12/16/2016 Xochitl AUGUSTE) (Ack 23:17 Josepha ER Tech1) (3:56 EBonham) Blood Culture (No) (N/A) Urgent (23:40 12/16/2016 oXchitl AUGUSTE) (Ack 23:45 AMcQuoid ER Tech1) (4:27 AMcQuoid ER Tech1) Chest 1V Urgent (23:49 12/16/2016 Xochitl AUGUSTE) (Ack 23:50 AMcQuoid ER Tech1) (0:07 Mign[place]er) Lactate, Serum Urgent (00:05 12/17/2016 Xochitl AUGUSTE) (Ack 0:06 AMcQuoid ER Tech1) (4:27 AMcQuoid ER Tech1) Vitals - Orthostatic (00:10 12/17/2016 Xochitl AUGUSTE) (0:13 EBonham) - (manual differential) (02:05 12/17/2016 Xochitl AUGUSTE) (2:06 AMcQuoid ER Tech1) CPK Urgent (04:28 12/17/2016 Xochitl AUGUSTE) (Ack 4:34 AMcQuoid ER Tech1) (5:02 AMcQuoid ER Tech1) Troponin-I Urgent (04:28 12/17/2016 Xochitl AUGUSTE) (Ack 4:34 AMcQuoid ER Tech1) (5:02 AMcQuoid ER Tech1) EKG - ER Stat (04:28 12/17/2016 Xochitl AUGUSTE) (Ack 4:30 AMcQuoid ER Tech1) (5:02 AMcQuoid ER Tech1) PCT (Procalcitonin) Urgent (05:07 12/17/2016 Xochitl AUGUSTE) (Ack 5:10 TLewis R.N.) CRP Urgent (05:07 12/17/2016 Xochitl AUGUSTE) (Ack 5:12 AMcQuoid ER Tech1) MEDICATION ORDERS: IV FLUIDS: IV Saline Lock (23:15 12/16/2016 Xochitl AUGUSTE) (Ack 23:30 RCollier R.N.) (23:37 EBonham) Dilaudid IV 1 mg (HIGH ALERT MEDICATION, NOW) (23:56 12/16/2016 Xochitl AUGUSTE) (0:12 EBonham) Zofran IV 4 mg (NOW) (23:56 12/16/2016 Xochitl AUGUSTE) (0:12 EBonham) IV NS : initial bolus 500 mL (1000 mL/hr), then 125 mL/hr for 4h (NOW); Urgent (23:56 12/16/2016 Xochitl AUGUSTE) (0:13 EBonham) (Cancelled: Other1:39 Xochitl AUGUSTE) IV NS : initial bolus 500 mL (1000 mL/hr), then 1000 mL/hr for X1 (NOW); Stat (01:39 12/17/2016 Chai verbal order read back to Xochitl AUGUSTE) (1:46 EBonham) IV NS : initial bolus 1000 mL (1000 mL/hr), then 1000 mL/hr for 4h (NOW); Urgent (01:41 12/17/2016 Xochitl AUGUSTE) (1:45 EBonham) IV NS with Normal Saline 1 Liter: initial bolus 1000 mL (1000 mL/hr), then 1000 mL/hr for X1 (NOW) (02:47 12/17/2016 Chai verbal order read back to Xochitl AUGUSTE) (2:48 Chai) Ceftriaxone IV 2 gm/50mL (NOW) (04:32 12/17/2016 Xochitl AUGUSTE) (Ack 4:34 RCollier R.N.) (4:54 Chai) IV NS with Normal Saline 1 Liter: initial bolus none -, then 150 mL/hr (NOW) (04:55 12/17/2016 Chai verbal order read back to Xochitl AUGUSTE) (4:57 Chai) ORDER SHEET NOTES: [Electronically signed by Olga Quinn (06:32 12/17/2016)] [Electronically signed by Miguel A Marroquin MD (07:58 12/17/2016)] [Electronically locked/signed by Olga Quinn (06:32 12/17/2016)]
--- NOTE | 2016-12-17 06:52 | Progress Note ---
Subjective General Admission History and Physical Examination Patient Name: Harsh Vargas Admission Date: December 17, 2016 Primary Care Provider: Stoney Lynch M.D. Attending Physician: Ollie Johnson M.D. Admitting Physician: Dio Ortez M.D. SUBJECTIVE Historian: Patient Reliability: Fair Chief Complaint: Fever and chills History of Present Illness: The patient is a 71-year-old white male with a significant past medical history of lung CVA, gastroesophageal reflux, BPH, hypertension, hyperlipidemia, tension headache, coronary artery disease, who presented to [facility] emergency department secondary to complaints of fever and chills of 24 hours duration. [facility] ER evaluation was consistent with findings of occult infection/rule out sepsis. Secondary to the above, the patient was admitted by Dio Ortez M.D. for further evaluation and treatment. The patient presented with history of fever and chills of approximately 24 hours duration. This occurred status post recent chemotherapy. There was associated tachycardia, hypotension but no clear source of infectious process. Secondary to presenting symptomatology, physical findings, laboratory/radiology findings the patient was admitted is of possible sepsis for further evaluation and treatment PAST MEDICAL HISTORY Illnesses: 1. Lung cancer 2. Hypertension 3. Tension headaches 4. Gastroesophageal reflux 5. BPH 6. Hypercholesterolemia 7. Coronary artery disease 8. Degenerative joint disease Allergies: 1. Doxycycline 2. Penicillin 3. Aluminum Medications: 1. Tamsulosin HCl Oral 0.4 mg, at bedtime. 2. Vit D3 - 2000iu daily . 3. ASA 81 mg, daily. 4. Claritin-D 24 Hour Oral. 5. Hydrochlorothiazide Oral 25 mg, daily. 6. Ibuprofen Oral 400 mg, PRN, last dose 0530. 7. Lisinopril Oral 20 mg, in an and 10mg in pm. 8. Protonix Oral 40 mg, daily. 9. Simvastatin Oral 40 mg, at bedtime. Surgery: 1. Cardiac Catheterization. 2. Coronary Artery Bypass Graft. 3. Hemorrhoidectomy. 4. Hernia Repair. 5. Knee Prosthesis. 6. Left upper lobectomy 7. Coronary stent 2 8. Total Knee right side Injuries: 1. No significant Hospitalizations: 1. For above surgery and medical problems FAMILY HISTORY Parents: 1. Father, , 80, pneumonia, prostate cancer, 2. Mother, , 79, heart disease-type unknown Siblings: 1. Female, , 70, breast cancer 2. Male, living, 72, prostate cancer 3. Male, living, 65, prostate cancer Children: 1. Female, living, 32, healthy Other significant family history: None SOCIAL HISTORY 1. Marital Status: 2. Baptist: None 3. Education: 10th grade 4. 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 Occupational health exposures: Dust, asbestos, loud noises HABITS 1. Tobacco: Chews tobacco, distant cigarette usage stop 1968 2. Drugs: None 3. Alcohol: None 4. Caffeine: 4 cups per day HEALTH SUPERVISION Item/Test 1. Vision screen: 2014 2. Cholesterol Profile: 2015 3. PSA: Unknown 4. TERRENCE: Unknown 5. FOBT: No recent 6. Blood Glucose: 2015 7. Colonoscopy: Unknown date, previously performed 8. History and physical exam: 2014 9. Audiogram: Unknown IMMUNIZATIONS: 1. Pneumococcal: 2013 2. Influenza: 2015 3. Tetanus: 2006 REVIEW OF SYSTEMS Remarkable for those things stated in the history of present illness and past medical history. Seventeen point review of system completed with the following notable findings: General: Fatigue, chest pain, weakness Throat: Hoarseness Lungs: Shortness of breath Cardiovascular: Hypertension Genitourinary: Frequent urination Physical Exam Vital Signs / I&Os Vital Signs Date Time Temp Pulse Resp B/P Pulse O2 O2 Flow FiO2 Ox Delivery Rate 12/17 0633 Room Air 12/17 06 97.9 88 12 108/56 94 Room Air General Appearance Alert, Oriented X3, Cooperative, No acute distress HEENT Atraumatic, PERRLA, EOMI, Moist mucous membranes Lungs Clear to auscultation, Normal air movement Neck Supple, No JVD Cardiovascular Regular rate and rhythm, Normal S1 and S2 Abdomen Normal bowel sounds, Soft, No tenderness, No guarding Extremities No cyanosis, No clubbing Skin subcutaneous fluid collection left chest wall Neurological Grossly normal Psych/Mental Status Mental status normal, Mood normal LAB Results Laboratory Tests 12/17 12/17 12/17 12/17 12/16 0015 UNK UNK UNK 2330 Chemistry Plasma Sodium (136 - 145 mmol/L) 134 Plasma Potassium (3.5 - 5.1 mmol/L) 3.5 Plasma Chloride (98 - 107 mmol/L) 103 CO2 (Enzymatic) (21 - 32 mmol/L) 25 BUN (7 - 18 mg/dL) 16 Creatinine (0.6 - 1.3 mg/dL) 1.2 Est GFR ( Amer) (mL/min) >60 Est GFR (Non-Af Amer) (mL/min) >60 Glucose (70 - 110 mg/dL) 103 Lactic Acid (0.4 - 2.0 mmol/L) 1.4 Plasma Calcium (8.5 - 10.1 mg/dL) 8.7 Total Bilirubin (0.0 - 1.0 mg/dL) 0.4 AST (15 - 37 U/L) 20 ALT (12 - 78 U/L) 22 Alkaline Phosphatase (46 - 116 U/L) 81 Creatine Kinase (24 - 260 U/L) 44 Troponin (0.00 - 1.5 ng/mL) <0.05 C-Reactive Protein (0.0 - 0.9 mg/dL) 9.3 Total Protein (6.4 - 8.2 g/dL) 6.3 Albumin (3.3 - 5.0 g/dL) 2.7 Amylase (25 - 115 U/L) 21 Lipase (73 - 393 U/L) 90 Procalcitonin (0 - 0.5 ng/mL) <0.5 Coagulation INR (0.8 - 1.2) 1.0 APTT (24 - 34 SECONDS) 30 Hematology WBC (4.5 - 11.5 K/uL) 18.7 RBC (4.50 - 5.90 M/uL) 4.54 Hgb (13.5 - 17.5 gm/dL) 12.1 Hct (41.0 - 53.0 %) 37.1 MCV (80 - 100 fL) 82 MCH (26 - 34 pg) 27 RDW (11.6 - 14.8 %) 14.2 Gran % 92.2 Neut % (Auto) (50 - 75 %) 90 Lymph % (Auto) (25 - 40 %) 6 [place] % (Auto) (3 - 14 %) 1 Eos % (Auto) (0 - 4 %) 0 Baso % (Auto) (0 - 2 %) 0 Band Neutrophils % (0 - 8 %) 3 Metamyelocytes % (0 - 1 %) 0 Myelocytes (0 - 1 %) 0 Other Cell Type 0 Plt Count, EDTA (150 - 400 K/uL) 317 PUBS MCHC (31 - 37 g/dL) 33 Imaging Chest X-Ray IMPRESSION: 1. Left upper lobectomy 2. Poor inspiration with bibasilar atelectasis 3. Stable right subclavian catheter with the tip in the subclavian vein Dictated by: JONH GONZALEZ MD D: PARVEZ;12/17/16 0047 Assessment and Plan Problem List 1. Lung cancer Plan -The patient has a long-standing history of lung cancer. -Obtained. His medical records -Outpatient follow-up with hematology/oncology -No further evaluation at this time. 2. Leukocytosis Plan -Patient presents with findings of leukocytosis/SIRS -Leukocytosis, elevated Procalcitonin, fever, tachycardia, hypotension -Blood cultures 2 -Check fluid collection left chest to rule out abscess/infection -Rocephin/Levaquin per oncology recommendations -Follow-up lactic acid, Procalcitonin, CBC -Monitor 3. Hypotension Plan -Patient received vigorous IV fluid support 3 L IV saline in the emergency department -Monitor -Pressor agents as necessary 4. Hypertension Status Chronic Onset Date Unknown Plan -Patient with history of hypertension -Currently manifest hypotension -IV fluid therapy -Monitor 5. Hyperlipidemia Status Chronic Onset Date Unknown 6. BPH (benign prostatic hyperplasia) Status Chronic Onset Date Unknown Plan -Flomax one patient's blood pressure normalized -Monitor 7. Coronary artery disease Status Chronic Onset Date Unknown Plan -Stable -No recent chest pain -Monitor 8. Sepsis Plan -Patient presents With suspected sepsis -Cased discussed with oncology-recommend Levaquin/Rocephin -IV fluid therapy, antimicrobials, follow-up with pressors as necessary -Monitor 9. Gastroesophageal reflux Status Chronic Onset Date Unknown Plan -Protonix IV -Monitor -Not problematic this time Current status: Critical, unstable Anticipated discharge date: Anticipated discharge 3-4 days Anticipated discharge placement: Home Patient care time: Time spent in chart review, patient interview, physical exam, CPOE, and care documentation: 70 minutes Visit to patient today: 3 Complexity of care: High E&M Codes Admission: Inpt-High/60081
--- NOTE | 2016-12-17 07:58 | ED MAR SUMMARY ---
..... Medication Administration Record [facility] [address] [place] [address] Patient: JONES YOUNG Visit ID: [id number] 71y, M Weight: 115.6 kg Height/Length: 72 in BMI: 34.6 ALLERGIES: Aluminum, Doxycycline, PCN Given 00:12 12/17/2016 Olga Quinn, Medication Administered: DILAUDID [IVP] (HYDROMORPHONE HCL PF), Dose: 1 mg IVP, Site: #1 left forearm. Medication Ordered: Dilaudid IV 1 mg (HIGH ALERT MEDICATION, NOW). Given 00:12 12/17/2016 Olga Quinn, Medication Administered: ZOFRAN [IVP] (ONDANSETRON HCL), Dose: 4 mg IVP, Site: #1 left forearm. Medication Ordered: Zofran IV 4 mg (NOW). Start 00:13 12/17/2016 Olga Quinn,, Stop 00:35 12/17/2016 Olga Quinn, Medication Administered: IV NS (SALINE), Dose: IV Fluids, Bolus: 500 mL over 30 minute(s), Dispensed: 500 mL bag, Site: #1 left forearm. Medication Ordered: IV NS : initial bolus 500 mL (1000 mL/hr), then 125 mL/hr for 4h (NOW); Urgent. Start 00:40 12/17/2016 Olga Quinn,, Stop 01:40 12/17/2016 Olga Quinn, Medication Administered: IV NS (SALINE), Dose: IV Fluids, Bolus: 1000 mL wide open, Dispensed: 1000 mL bag, Site: #1 left forearm. Medication Ordered: IV NS : initial bolus 1000 mL (1000 mL/hr), then 1000 mL/hr for 4h (NOW); Urgent. Start 01:46 12/17/2016 Olga Quinn,, Stop 02:12 12/17/2016 Olga Quinn, Medication Administered: IV NS (SALINE), Dose: IV Fluids, Bolus: 500 mL wide open, Dispensed: 500 mL bag, Site: #1 left forearm. Medication Ordered: IV NS : initial bolus 500 mL (1000 mL/hr), then 1000 mL/hr for X1 (NOW); Stat. Start 02:48 12/17/2016 Olga Quinn,, Stop 03:56 12/17/2016 Olga Quinn, Medication Administered: IV NS (SALINE), Dose: IV Fluids, Bolus: 1000 mL wide open, Dispensed: 1000 mL bag, Site: #1 left forearm. Medication Ordered: IV NS with Normal Saline 1 Liter: initial bolus 1000 mL (1000 mL/hr), then 1000 mL/hr for X1 (NOW). Start 04:54 12/17/2016 Olga Quinn,, Stop 05:09 12/17/2016 Miguel Angel Cain R.N. Medication Administered: CEFTRIAXONE [IVPB], Dose: 2 gm IVPB over 30 minute(s), Rate: 150 mL/hr, Dispensed: 50 mL bag, Site: #1 left forearm. Medication Ordered: Ceftriaxone IV 2 gm/50mL (NOW). Start 04:57 12/17/2016 Olga Quinn,, Stop 06:32 12/17/2016 Olga Quinn, Medication Administered: IV NS (SALINE), Dose: IV Fluids over 6 hour(s), Rate: 150 mL/hr, Dispensed: 1000 mL bag, Site: #1 left forearm. Medication Ordered: IV NS with Normal Saline 1 Liter: initial bolus none -, then 150 mL/hr (NOW).
--- NOTE | 2016-12-17 07:58 | ED MED RECONCILIATION SUMMARY ---
Patient: JONES YOUNG Medication Reconciliation Report [facility] VisitID: [id number] [address] [place] [address] 71y, M Registration Date/Time: 12/16/2016 Weight: 115.6 kg Height/Length: 72 in. BMI: 34.6 ALLERGIES: Aluminum, Doxycycline, PCN The patient's Home Medications are listed below: THE FOLLOWING MEDICATIONS NEED TO BE RECONCILED: ASA 81 mg, daily Claritin-D 24 Hour Oral Hydrochlorothiazide Oral 25 mg, daily Ibuprofen Oral 400 mg, PRN, last dose: 0530 Lisinopril Oral 20 mg, in an and 10mg in pm Protonix Oral 40 mg, daily Simvastatin Oral 40 mg, at bedtime Tamsulosin HCl Oral 0.4 mg, at bedtime Vit D3 - 2000iu daily The source(s) of the original Home Medication information: Not obtained. The following Medications were given to the patient in the Emergency Department: Dilaudid [IVP] IVP 1 mg, administered: 12/17/2016 12:12:00 AM Zofran [IVP] IVP 4 mg, administered: 12/17/2016 12:12:00 AM IV NS IV Fluids bolus 500 mL over 30 minute(s), administered: 12/17/2016 12:13:00 AM IV NS IV Fluids bolus 1000 mL wide open, administered: 12/17/2016 12:40:00 AM IV NS IV Fluids bolus 500 mL wide open, administered: 12/17/2016 1:46:00 AM IV NS IV Fluids bolus 1000 mL wide open, administered: 12/17/2016 2:48:00 AM Ceftriaxone [IVPB] IVPB bolus 0, then 2 gm 150 mL/hr, administered: 12/17/2016 4:54:00 AM IV NS IV Fluids bolus 0, then 150 mL/hr, administered: 12/17/2016 4:57:00 AM The following Medications were prescribed to the patient: None.
--- NOTE | 2016-12-17 07:58 | ED MED RECONCILIATION SUMMARY ---
Patient: JONES YOUNG Medication Reconciliation Report [facility] VisitID: [id number] [address] [place] [address] 71y, M Registration Date/Time: 12/16/2016 Weight: 115.6 kg Height/Length: 72 in. BMI: 34.6 ALLERGIES: Aluminum, Doxycycline, PCN The patient's Home Medications are listed below: THE FOLLOWING MEDICATIONS NEED TO BE RECONCILED: ASA 81 mg, daily Claritin-D 24 Hour Oral Hydrochlorothiazide Oral 25 mg, daily Ibuprofen Oral 400 mg, PRN, last dose: 0530 Lisinopril Oral 20 mg, in an and 10mg in pm Protonix Oral 40 mg, daily Simvastatin Oral 40 mg, at bedtime Tamsulosin HCl Oral 0.4 mg, at bedtime Vit D3 - 2000iu daily The source(s) of the original Home Medication information: Not obtained. The following Medications were given to the patient in the Emergency Department: Dilaudid [IVP] IVP 1 mg, administered: 12/17/2016 12:12:00 AM Zofran [IVP] IVP 4 mg, administered: 12/17/2016 12:12:00 AM IV NS IV Fluids bolus 500 mL over 30 minute(s), administered: 12/17/2016 12:13:00 AM IV NS IV Fluids bolus 1000 mL wide open, administered: 12/17/2016 12:40:00 AM IV NS IV Fluids bolus 500 mL wide open, administered: 12/17/2016 1:46:00 AM IV NS IV Fluids bolus 1000 mL wide open, administered: 12/17/2016 2:48:00 AM Ceftriaxone [IVPB] IVPB bolus 0, then 2 gm 150 mL/hr, administered: 12/17/2016 4:54:00 AM IV NS IV Fluids bolus 0, then 150 mL/hr, administered: 12/17/2016 4:57:00 AM The following Medications were prescribed to the patient: None.
--- NOTE | 2016-12-17 07:58 | ED DISCHARGE INSTRUCTIONS ---
Patient: JONES YOUNG General Instructions [facility] VisitID: [id number] [address] [place] [address] 71y, M Registration Date/Time: 12/16/2016 Hypotension. Hypovolemia. Leukocytosis. Lung cancer. (Electronically signed by Miguel A Marroquin MD 12/17/2016 7:58)
--- NOTE | 2016-12-17 07:58 | ED MAR SUMMARY ---
..... Medication Administration Record [facility] [address] [place] [address] Patient: JONES YOUNG Visit ID: [id number] 71y, M Weight: 115.6 kg Height/Length: 72 in BMI: 34.6 ALLERGIES: Aluminum, Doxycycline, PCN Given 00:12 12/17/2016 Olga Quinn, Medication Administered: DILAUDID [IVP] (HYDROMORPHONE HCL PF), Dose: 1 mg IVP, Site: #1 left forearm. Medication Ordered: Dilaudid IV 1 mg (HIGH ALERT MEDICATION, NOW). Given 00:12 12/17/2016 Olga Quinn, Medication Administered: ZOFRAN [IVP] (ONDANSETRON HCL), Dose: 4 mg IVP, Site: #1 left forearm. Medication Ordered: Zofran IV 4 mg (NOW). Start 00:13 12/17/2016 Olga Quinn,, Stop 00:35 12/17/2016 Olga Quinn, Medication Administered: IV NS (SALINE), Dose: IV Fluids, Bolus: 500 mL over 30 minute(s), Dispensed: 500 mL bag, Site: #1 left forearm. Medication Ordered: IV NS : initial bolus 500 mL (1000 mL/hr), then 125 mL/hr for 4h (NOW); Urgent. Start 00:40 12/17/2016 Olga Quinn,, Stop 01:40 12/17/2016 Olga Quinn, Medication Administered: IV NS (SALINE), Dose: IV Fluids, Bolus: 1000 mL wide open, Dispensed: 1000 mL bag, Site: #1 left forearm. Medication Ordered: IV NS : initial bolus 1000 mL (1000 mL/hr), then 1000 mL/hr for 4h (NOW); Urgent. Start 01:46 12/17/2016 Olga Quinn,, Stop 02:12 12/17/2016 Olga Quinn, Medication Administered: IV NS (SALINE), Dose: IV Fluids, Bolus: 500 mL wide open, Dispensed: 500 mL bag, Site: #1 left forearm. Medication Ordered: IV NS : initial bolus 500 mL (1000 mL/hr), then 1000 mL/hr for X1 (NOW); Stat. Start 02:48 12/17/2016 Olga Quinn,, Stop 03:56 12/17/2016 Olga Quinn, Medication Administered: IV NS (SALINE), Dose: IV Fluids, Bolus: 1000 mL wide open, Dispensed: 1000 mL bag, Site: #1 left forearm. Medication Ordered: IV NS with Normal Saline 1 Liter: initial bolus 1000 mL (1000 mL/hr), then 1000 mL/hr for X1 (NOW). Start 04:54 12/17/2016 Olga Quinn,, Stop 05:09 12/17/2016 Miguel Angel Cain R.N. Medication Administered: CEFTRIAXONE [IVPB], Dose: 2 gm IVPB over 30 minute(s), Rate: 150 mL/hr, Dispensed: 50 mL bag, Site: #1 left forearm. Medication Ordered: Ceftriaxone IV 2 gm/50mL (NOW). Start 04:57 12/17/2016 Olga Quinn,, Stop 06:32 12/17/2016 Olga Quinn, Medication Administered: IV NS (SALINE), Dose: IV Fluids over 6 hour(s), Rate: 150 mL/hr, Dispensed: 1000 mL bag, Site: #1 left forearm. Medication Ordered: IV NS with Normal Saline 1 Liter: initial bolus none -, then 150 mL/hr (NOW).
--- NOTE | 2016-12-17 07:58 | ED DISCHARGE INSTRUCTIONS ---
Patient: JONES YOUNG General Instructions [facility] VisitID: [id number] [address] [place] [address] 71y, M Registration Date/Time: 12/16/2016 Hypotension. Hypovolemia. Leukocytosis. Lung cancer. (Electronically signed by Miguel A Marroquin MD 12/17/2016 7:58)
--- NOTE | 2016-12-17 13:58 | NUR ---
I discussed with the patient their current medications, possible side effects, and answered questions.
--- NOTE | 2016-12-17 14:44 | NUR ---
NUTRITION ASSESSMENT: S: Pt admitted with dx/o leukocytosis, lung cancer, hypotension. Pt with PMH of HTN, tension headaches, GERD, BPH, hypercholesterolemia, CAD, DJD, see H&P. Spoke with pt after lunch today as this was his first meal (prev on clear liquids) states appetite poor since start of chemo tx and has lost about 20# since start of tx. Pt states that he has tried ensure, states that they have some at home as well. Gave pt and on meal snack ideas to help increase adequate protein/maggi intake to help prevent signficant wt loss and preserve protein for healing/anabolism. O: Diet rx: General Regular Thin NKFA wTs: 120 kg Ht: 72" IBW: 67-84 kg BMI: 36.2 %IBW: ~142% ABW: ~95 kg Est Kcals: ~8198-8146 kcals per day Est Pro: ~95-130 g per day Est Fluids: ~per MD Meds Incl: aspirin, lipitor, IV ABOs, protonix, see eMar for complete list. Labs Incl: (12/17) glucose 88, BUN 16, Creat 1.0, Na+ 141, K+ 3.8, Mag 1.9, Ca+ 7.6, HCT 32.3, HGB 10.5, MCV 84, MCH 27 Skin: Luis Eduardo Score 17; coccyx pink waffle overlay in place. A: Pt po intake ~50% per report. Wt loss since chemo tx reported. Suggested pt drink ensure or boost type supplement at home to help supplement and use as meal replacement, pt and appeared to understand. Rec BOOST bid between meals to help optimiz kcal and protein intake as pt s/p chemo tx, dx/o cancer and recent wt loss. Per BMI; class II obese however d/t increased healing needs at this time no signficant weight loss warranted. Rev'd meds and labs. Skin fragile, site interpreter aware and preventative measures in place (see above). RD to continue to monitor nutrition indices prn/protocol. P: Foods and fluids of choice BOOST between meals bid.
[2016-12-17] MEDS ORDERED: ASPIRIN 81 LOW81 MG PO (17:41)
--- NOTE | 2016-12-17 17:55 | NUR ---
pt has been up to bathroom, deborah. activity well. Has been up to chair for bfast and lunch. Med for L sided chest pain, has large swollen mass around his L breast. Dr. Barger drained that site, and has inserted a drain. Pt. tolerated procedure well.
--- NOTE | 2016-12-17 19:17 | DIAGNOSTIC IMAGING REPORT ---
PROCEDURE: US CHEST INDICATION: Lung carcinoma. Recurrent left chest wall fluid collection with rib destruction. Fever. Chills. Possible abscess. TECHNIQUE: Castellanos scale and color Doppler sonographic images of the left chest wall were obtained COMPARISON: Comparison is made to CT thorax (12/10/2016) and ultrasound guided drainage procedure (11/13/2016). FINDINGS: There is increasing size of a large 15.5 x 12.6 x 12.5 cm left lower chest proteinaceous fluid collection with internal debris (previously 11.8 x 10.8 cm on 11/13/2016). This is associated with moderate thickening of the wall posterior wall of the cavity IMPRESSION: 1. Increasing size of large 15.5 x 12.6 x 12.5 cm left lower chest wall complex fluid collection with irregular mills. Consider progression of metastatic disease and/or chest wall abscess. 2. Findings discussed with Dr. Johnson.
--- NOTE | 2016-12-17 19:30 | NUR ---
DR DIXON IN ROOM, AWARE OF BLOOD PRESSURE OF 94/46, MAP OF 62 - NO NEW ORDERS RECIEVED.
--- NOTE | 2016-12-17 20:11 | NUR ---
LUNGS CLEAR, O2 SATS AT 99% ON ROOM AIR - BP AT 92/45, 500ML NS BOLUS STARTED PER ORDERS.
--- NOTE | 2016-12-17 22:04 | NUR ---
LATE ENTRY - COMPUTERS DOWN AT TIME OF ADMIT TO FLOOR. PT ADMITTED TO ROOM 305 AT 0620 12/17/16, CCU STATUS. TO FLOOR VIA [facility] WITH ER NURSE. PT AMBULATED FROM [facility] TO BED -NO COMPLAINTS OF DIZZINESS. IV FLUIDS INFUSING TO LAC AT 125/HR. NO SOB, NO CHEST PAIN, NO NAUSEA. AFEBRILE AT 97.8. BLOOD PRESSURE AT 108/56, HEART RATE AT 88. RESP 12, O2 SATS AT 94% ON ROOM AIR. AWAITING DR TO COME AND ASSESS PT. PTS PAIN AT A 2/10 TO LEFT CHEST WALL MASS. PT ORIENTED TO ROOM, CALL LIGHT WITHIN REACH. WAFFLE MATTRESS IN PLACE. PT IS ABLE TO MOVE AROUND IN BED ON OWN.
--- NOTE | 2016-12-17 22:07 | NUR ---
PT RESTING IN BED. ALERT AND ORIENTED. TORADOL IV EFFECTIVE IN PAIN CONTROL TO A 2/ - DESCRIBED AN ACHE TO LEFT CHEST WALL. JOSSELIN IN PLACE DRAINING SEROSANG FLUID - ATTACHED TO GOWN, TO SUCTIONS - WORKING APPROPRIATELY. BLOOD PRESSURE AT 98/43, MAP OF 61. ALERT AND ORIENTED X3. WAFFLE MATTRESS IN PLACE. PT MOVING AROUND IN BED ON OWN. IV TO LAC UNREMARKABLE - IV INFUSING AT 125/HR. TELE SHOWS SINUS RHYTHM, HEART RATE AT 75. O2 SATS AT 97% ON ROOM AIR. CALL LIGHT WITHIN REACH. NO REQUESTS AT THIS TIME.
[2016-12-18] VITALS (13 sets, daily range): BP systolic 95–129; BP diastolic 47–62
--- NOTE | 2016-12-18 06:11 | NUR ---
PTS PAIN CONTROLLED WITH IV TORADOL AND PO TYLENOL TO LEFT CHEST WALL. PT MOVING AROUND IN BED ON OWN. JOSSELIN REMAINS IN PLACE DRAINING SEROSANG FLUID - TO SUCTION AND ATTACHED TO GOWN. APPROX 340 DRAINED FROM JOSSELIN ON WOOD PATTERN MAKER. BLOOD PRESSURE AT 109/59, MAP AT 76, HEART RATE AT 76. AFEBRILE, NO COMPLAINTS OF NAUSEA. REMAINS ALERT AND ORIENTED X3. CALL LIGHT WITHIN REACH.
--- NOTE | 2016-12-18 09:30 | Progress Note ---
Subjective General Note Date: December 18, 2016 Admission Date: December 17, 2016 Hospital Day: 2 PCP: Stoney Lynch M.D. Status: Inpatient Advanced Directive: FULL CODE Room: 305 Brief History: The patient is a 71-year-old white male with a significant past medical history of lung CVA, gastroesophageal reflux, BPH, hypertension, hyperlipidemia, tension headache, coronary artery disease, who presented to [facility] emergency department secondary to complaints of fever and chills of 24 hours duration. [facility] ER evaluation was consistent with findings of occult infection/rule out sepsis. Secondary to the above, the patient was admitted by Dio Ortez M.D. for further evaluation and treatment. For other history present illness, past medical history, family history, social history, review of systems, and admission physical examination please see the patient's history and physical examination and ER visit note in the patient's medical record. Subjective: The patient states he is doing well today. Feels back to baseline state. No complaints. States ready for discharge Patient requests: No specific Medications and Allergies Medications Current Medications Sig/Rola Start time Last Medication Dose Route Stop Time Status Admin Acetaminophen/ See Dose Q6H PRN 12/18 0915 AC 12/18 Hydrocodone Bitart Insts (1) PO 0914 Ceftriaxone Sodium/ 50 ML DAILY 12/18 0900 AC 12/18 Dextrose IV 0819 Sodium Chloride 1,000 ML ASDIRECTED 12/17 2230 AC 12/18 IV 0122 Atorvastatin Calcium 40 MG QPM / 1800 AC 12/17 PO 1825 Tramadol HCl 50 MG Q6H PRN 12/17 1645 AC PO Aspirin 81 MG DAILY 12/17 0900 AC 12/18 PO 0849 Enoxaparin Sodium 40 MG QAM 12/17 0900 AC 12/18 SC 0848 Levofloxacin/Dextrose 150 ML DAILY 12/17 0900 AC 12/18 IV 0849 Acetaminophen 650 MG Q4H PRN 12/17 0715 AC 12/18 PO 0526 Al Hydrox/Mg Hydrox/ 15 ML Q1H PRN 12/17 0715 AC Simethicone PO Albuterol Sulfate 2.5 MG RTQ3H PRN 12/17 0715 AC IN Atropine Sulfate 0.5 MG Q3MIN PRN 12/17 0715 AC IV Lidocaine HCl See Dose ONCE PRN 12/17 0715 AC Insts (2) IV Lorazepam 0.5 MG Q2H PRN 12/17 0715 AC PO Magnesium Hydroxide 10 ML DAILY PRN 12/17 0715 AC PO Morphine Sulfate 1 MG Q2H PRN 12/17 0715 AC 12/17 IV 1158 Morphine Sulfate 2 MG Q3M PRN 12/17 07 AC IV Nitroglycerin 0.4 MG Q5M PRN 12/17 0715 AC SL Ondansetron HCl 4 MG Q6H PRN 12/17 0715 AC IV Pantoprazole Sodium 40 MG DAILY@0600 12/17 07 AC 12/18 IV 0517 Dose Instructions: (1)Acetaminophen/Hydrocodone Bitart: 1 - 2 TABLETS (2)Lidocaine HCl: 1.5 MG/KG Allergies Coded Allergies: Doxycycline (From VIBRAMYCIN) (Severe, Rash/Welts 12/17/16) Penicillins (Severe, RASH 12/17/16) Uncoded Allergies: ENVIRONMENTAL (ALLERGIC RHINITIS 09/08/12) Physical Exam Vital Signs / I&Os Vital Signs Date Time Temp Pulse Resp B/P Pulse O2 O2 Flow FiO2 Ox Delivery Rate 12/18 0707 98.1 80 19 105/54 98 Room Air 0.0 / 0610 75 16 109/59 100 Room Air 02/ 0545 Room Air 02/ 0500 82 20 95/54 98 Room Air 02/02 0419 80 105/49 97 02/02 0335 97.9 02/02 0300 97/53 02/02 0209 73 99/49 97 Room Air 02/ 0100 106/51 02/02 0035 98.2 02/02 0029 77 18 101/48 97 Room Air 02/ 2316 80 22 101/46 98 02/01 2205 76 20 98/43 100 Room Air 02/01 2115 82 20 110/49 98 Room Air 02/ 2100 82 20 108/50 99 Room Air 02/ 2021 97.5 80 18 97/45 99 Room Air 02/ 1949 Room Air 02/ 1916 77 18 94/46 97 Room Air 02/ 1809 76 16 87/47 98 02/01 1710 82 15 94/50 99 02/01 1509 97.5 84 15 75/43 98 02/01 1400 89 19 87/45 97 02/01 1330 89 19 84/50 99 Room Air 0.0 02/ 1221 98.2 83 22 91/43 99 Room Air 0.0 12/17 1215 88 20 92/50 99 02/ 1059 92 23 99/41 97 Room Air 2.0 12/17 1000 Room Air I&O 12/18 0000 12/17 1600 12/17 0800 Intake Total 2613 1670 120 Output Total 1115 325 275 Balance 1498 1345 -155 General Appearance Alert, Oriented X3, Cooperative, No acute distress Lungs Clear to auscultation, Normal air movement Cardiovascular Regular rate and rhythm, Normal S1 and S2 Abdomen Normal bowel sounds, Soft, No tenderness Skin JOSSELIN drain present left anterior chest Neurological Grossly normal Psych/Mental Status Mental status normal, Mood normal LAB Results Laboratory Tests 12/18 12/17 0515 1815 Chemistry Plasma Sodium (136 - 145 mmol/L) 141 Plasma Potassium (3.5 - 5.1 mmol/L) 3.6 Plasma Chloride (98 - 107 mmol/L) 110 CO2 (Enzymatic) (21 - 32 mmol/L) 22 BUN (7 - 18 mg/dL) 15 Creatinine (0.6 - 1.3 mg/dL) 0.8 Est GFR ( Amer) (mL/min) >60 Est GFR (Non-Af Amer) (mL/min) >60 Glucose (70 - 110 mg/dL) 91 Plasma Calcium (8.5 - 10.1 mg/dL) 6.7 Hematology WBC (4.5 - 11.5 K/uL) 11.4 RBC (4.50 - 5.90 M/uL) 3.78 Hgb (13.5 - 17.5 gm/dL) 10.2 Hct (41.0 - 53.0 %) 31.3 MCV (80 - 100 fL) 83 MCH (26 - 34 pg) 27 RDW (11.6 - 14.8 %) 14.7 Neut % (Auto) (50 - 75 %) 81 Lymph % (Auto) (25 - 40 %) 8 [place] % (Auto) (3 - 14 %) 1 Eos % (Auto) (0 - 4 %) 1 Baso % (Auto) (0 - 2 %) 0 Band Neutrophils % (0 - 8 %) 9 Metamyelocytes % (0 - 1 %) 0 Myelocytes (0 - 1 %) 0 Other Cell Type 0 Plt Count, EDTA (150 - 400 K/uL) 217 RBC Morphology 1+ ANISOCYTOSIS PUBS MCHC (31 - 37 g/dL) 33 Other Body Source Fluid Type THORACENTESIS Fluid Color YELLOW Fluid Appearance (CLEAR) CLOUDY Fluid WBC (WBC/mm3) 8167 Fluid RBC (RBC/mm3) 18847 Fluid Seg Neutrophil % (%) 94 Fluid Mononuclear Cell (%) 6 Fluid Glucose (mg/dL) 0 Fluid Total Protein (g/dl) 5.0 Fluid LDH (IU/L) 17283 Microbiology Date/Time Procedure - Status Source Growth 12/17 1814 Fungal Culture - RECD BODY FLUID 12/17 181 Fungal Smear - RECD BODY FLUID 12/17 181 Acid Fast Bacilli (AFB) Sensitivity - RECD BODY FLUID 12/17 181 Mycobacterium gordanae DNA Probe - RECD BODY FLUID 12/17 181 Mycobacterium kansasii DNA Probe - RECD BODY FLUID 12/17 181 Mycobact. avium Complex DNA Probe - RECD BODY FLUID 12/17 181 M.tuberculosis Complex DNA Probe - RECD BODY FLUID 12/17 181 Acid Fast Bacilli Culture - RECD BODY FLUID 12/17 181 Acid Fast Bacilli Smear - RECD BODY FLUID 12/17 1815 Anaerobic Culture - RES BODY FLUID 12/17 1815 Body Fluid Culture - RES BODY FLUID 12/17 1815 Gram Stain - RES BODY FLUID Assessment and Plan Problem List 1. Lung cancer Plan -Stable -Follow up with Dr. Chi next week -Case discussed with Dr. Chi today, he recommends no further interventions regarding left anterior chest wall fluid collection 2. Leukocytosis Plan -Resolved -Patient afebrile -Blood cultures negative -Chest wall fluid collection cultures negative 3. Hypotension Plan -Resolved -Place patient back on her outpatient medical regimen -Monitor 4. Hypertension Status Chronic Onset Date Unknown Plan -Blood pressure well controlled to low -Monitor -Low-salt diet 5. BPH (benign prostatic hyperplasia) Status Chronic Onset Date Unknown Plan -Place the patient back on Flomax -Monitor 6. Coronary artery disease Status Chronic Onset Date Unknown Plan -Stable -No further evaluation -Outpatient follow up with PCP 7. Gastroesophageal reflux Status Chronic Onset Date Unknown Plan -Stable -Asymptomatic -Continue present therapy 8. Sepsis Plan -Patient admitted with suspected sepsis -Leukocytosis improved -Procalcitonin within normal limits -Blood culture, chest x-ray, urinalysis unremarkable -Plan discharge in a.m. if above remain unremarkable with no further antimicrobial therapy Current status: Fair, improved Anticipated discharge date: Anticipated discharge in a.m. Anticipated discharge placement: Home Patient care time: Time spent in chart review, patient interview, physical exam, CPOE, and care documentation: 25 minutes Visit to patient today: 2 Complexity of care: Moderate E&M Codes Rounding: Inpt-Moderate/[id number]
--- NOTE | 2016-12-18 10:03 | NUR ---
PT has been up ambulating in [facility]. activity well. JOSSELIN intact, draining pinkish cloudy fluid. Med for L chest pain with relief.
--- NOTE | 2016-12-18 14:21 | DIAGNOSTIC IMAGING REPORT ---
PROCEDURE: US SOFT TISSUE/MUS FLUID DRAIN INDICATION: Large cystic chest wall mass (15 cm). Fever. Chills. History of lung carcinoma. COMPARISON: Comparison is made to ultrasound of the chest earlier today (12/17/2016, 1550 hours). TECHNIQUE: Case was discussed with Dr. Johnson. There is concern for infected fluid collection (abscess) or underlying metastatic disease. Ultrasound-guided cyst drainage and cyst wall biopsy has been requested. Study performed at bedside in critical care unit. Informed consent was obtained and the patient was advised of the usual risks and complications of drainage procedure and biopsy, including infection, bleeding and allergy. Supine position. PROCEDURE/FINDINGS: Ultrasound guided cyst drainage: Following sterile preparation and 1% lidocaine local anesthetic, ultrasound guidance was utilized to place a 16-gauge angiocatheter in caudal aspect of a large 15 cm cystic mass in the left anterior lower thorax. A small amount of proteinaceous kurt fluid (10 ml ) as aspirated and sent for laboratory studies (cell count differential, protein, glucose, LDH, gram stain culture, AFB stain culture, fungal stain culture, cytology). Subsequently, utilizing a 0.038 guidewire, a 6-American cope loop catheter was inserted into the fluid collection, yielding 650 ml of proteinaceous fluid. Follow-up imaging demonstrated sub total collapse of the cystic fluid collection with residual thickening of the cyst wall. The catheter was secured to the patient's side (8-American Uresil device, Tegaderm), and placed to Juan-Tadeo bulb suction. Ultrasound-guided cyst wall needle biopsy: Utilizing the and adjacent incision site, a 19-gauge coaxial needle was inserted into the collapsed cyst directed into the posterior wall of the cyst. Four core biopsy samples were obtained with a 20-gauge biopsy instrument (placed in formalin). Fluid and tissue samples were transferred to the laboratory. The patient tolerated the procedure reasonably well and there were no complications. IMPRESSION: 1. Successful ultrasound-guided drainage of left chest wall cyst with 6-American cope loop catheter (yielding 650 ml of proteinaceous kurt fluid). 2. Successful ultrasound-guided biopsy of left chest cyst wall. 3. Laboratory studies are pending. 4. Findings discussed with Dr. Johnson.
--- NOTE | 2016-12-18 14:21 | DIAGNOSTIC IMAGING REPORT ---
PROCEDURE: US SOFT TISSUE/MUS FLUID DRAIN INDICATION: Large cystic chest wall mass (15 cm). Fever. Chills. History of lung carcinoma. COMPARISON: Comparison is made to ultrasound of the chest earlier today (12/17/2016, 1550 hours). TECHNIQUE: Case was discussed with Dr. Johnson. There is concern for infected fluid collection (abscess) or underlying metastatic disease. Ultrasound-guided cyst drainage and cyst wall biopsy has been requested. Study performed at bedside in critical care unit. Informed consent was obtained and the patient was advised of the usual risks and complications of drainage procedure and biopsy, including infection, bleeding and allergy. Supine position. PROCEDURE/FINDINGS: Ultrasound guided cyst drainage: Following sterile preparation and 1% lidocaine local anesthetic, ultrasound guidance was utilized to place a 16-gauge angiocatheter in caudal aspect of a large 15 cm cystic mass in the left anterior lower thorax. A small amount of proteinaceous kurt fluid (10 ml ) as aspirated and sent for laboratory studies (cell count differential, protein, glucose, LDH, gram stain culture, AFB stain culture, fungal stain culture, cytology). Subsequently, utilizing a 0.038 guidewire, a 6-Micronesian cope loop catheter was inserted into the fluid collection, yielding 650 ml of proteinaceous fluid. Follow-up imaging demonstrated sub total collapse of the cystic fluid collection with residual thickening of the cyst wall. The catheter was secured to the patient's side (8-Micronesian Uresil device, Tegaderm), and placed to Juan-Tadeo bulb suction. Ultrasound-guided cyst wall needle biopsy: Utilizing the and adjacent incision site, a 19-gauge coaxial needle was inserted into the collapsed cyst directed into the posterior wall of the cyst. Four core biopsy samples were obtained with a 20-gauge biopsy instrument (placed in formalin). Fluid and tissue samples were transferred to the laboratory. The patient tolerated the procedure reasonably well and there were no complications. IMPRESSION: 1. Successful ultrasound-guided drainage of left chest wall cyst with 6-Micronesian cope loop catheter (yielding 650 ml of proteinaceous kurt fluid). 2. Successful ultrasound-guided biopsy of left chest cyst wall. 3. Laboratory studies are pending. 4. Findings discussed with Dr. Johnson.
--- NOTE | 2016-12-18 14:21 | DIAGNOSTIC IMAGING REPORT ---
PROCEDURE: US SOFT TISSUE/MUS FLUID DRAIN INDICATION: Large cystic chest wall mass (15 cm). Fever. Chills. History of lung carcinoma. COMPARISON: Comparison is made to ultrasound of the chest earlier today (12/17/2016, 1550 hours). TECHNIQUE: Case was discussed with Dr. Johnson. There is concern for infected fluid collection (abscess) or underlying metastatic disease. Ultrasound-guided cyst drainage and cyst wall biopsy has been requested. Study performed at bedside in critical care unit. Informed consent was obtained and the patient was advised of the usual risks and complications of drainage procedure and biopsy, including infection, bleeding and allergy. Supine position. PROCEDURE/FINDINGS: Ultrasound guided cyst drainage: Following sterile preparation and 1% lidocaine local anesthetic, ultrasound guidance was utilized to place a 16-gauge angiocatheter in caudal aspect of a large 15 cm cystic mass in the left anterior lower thorax. A small amount of proteinaceous kurt fluid (10 ml ) as aspirated and sent for laboratory studies (cell count differential, protein, glucose, LDH, gram stain culture, AFB stain culture, fungal stain culture, cytology). Subsequently, utilizing a 0.038 guidewire, a 6-Ukrainian cope loop catheter was inserted into the fluid collection, yielding 650 ml of proteinaceous fluid. Follow-up imaging demonstrated sub total collapse of the cystic fluid collection with residual thickening of the cyst wall. The catheter was secured to the patient's side (8-Ukrainian Uresil device, Tegaderm), and placed to Juan-Tadeo bulb suction. Ultrasound-guided cyst wall needle biopsy: Utilizing the and adjacent incision site, a 19-gauge coaxial needle was inserted into the collapsed cyst directed into the posterior wall of the cyst. Four core biopsy samples were obtained with a 20-gauge biopsy instrument (placed in formalin). Fluid and tissue samples were transferred to the laboratory. The patient tolerated the procedure reasonably well and there were no complications. IMPRESSION: 1. Successful ultrasound-guided drainage of left chest wall cyst with 6-Ukrainian cope loop catheter (yielding 650 ml of proteinaceous kurt fluid). 2. Successful ultrasound-guided biopsy of left chest cyst wall. 3. Laboratory studies are pending. 4. Findings discussed with Dr. Johnson.
--- NOTE | 2016-12-18 14:21 | DIAGNOSTIC IMAGING REPORT ---
PROCEDURE: US SOFT TISSUE/MUS FLUID DRAIN INDICATION: Large cystic chest wall mass (15 cm). Fever. Chills. History of lung carcinoma. COMPARISON: Comparison is made to ultrasound of the chest earlier today (12/17/2016, 1550 hours). TECHNIQUE: Case was discussed with Dr. Johnson. There is concern for infected fluid collection (abscess) or underlying metastatic disease. Ultrasound-guided cyst drainage and cyst wall biopsy has been requested. Study performed at bedside in critical care unit. Informed consent was obtained and the patient was advised of the usual risks and complications of drainage procedure and biopsy, including infection, bleeding and allergy. Supine position. PROCEDURE/FINDINGS: Ultrasound guided cyst drainage: Following sterile preparation and 1% lidocaine local anesthetic, ultrasound guidance was utilized to place a 16-gauge angiocatheter in caudal aspect of a large 15 cm cystic mass in the left anterior lower thorax. A small amount of proteinaceous kurt fluid (10 ml ) as aspirated and sent for laboratory studies (cell count differential, protein, glucose, LDH, gram stain culture, AFB stain culture, fungal stain culture, cytology). Subsequently, utilizing a 0.038 guidewire, a 6-Comoran cope loop catheter was inserted into the fluid collection, yielding 650 ml of proteinaceous fluid. Follow-up imaging demonstrated sub total collapse of the cystic fluid collection with residual thickening of the cyst wall. The catheter was secured to the patient's side (8-Comoran Uresil device, Tegaderm), and placed to Juan-Tadeo bulb suction. Ultrasound-guided cyst wall needle biopsy: Utilizing the and adjacent incision site, a 19-gauge coaxial needle was inserted into the collapsed cyst directed into the posterior wall of the cyst. Four core biopsy samples were obtained with a 20-gauge biopsy instrument (placed in formalin). Fluid and tissue samples were transferred to the laboratory. The patient tolerated the procedure reasonably well and there were no complications. IMPRESSION: 1. Successful ultrasound-guided drainage of left chest wall cyst with 6-Comoran cope loop catheter (yielding 650 ml of proteinaceous kurt fluid). 2. Successful ultrasound-guided biopsy of left chest cyst wall. 3. Laboratory studies are pending. 4. Findings discussed with Dr. Johnson.
--- NOTE | 2016-12-18 14:21 | DIAGNOSTIC IMAGING REPORT ---
PROCEDURE: US SOFT TISSUE/MUS FLUID DRAIN INDICATION: Large cystic chest wall mass (15 cm). Fever. Chills. History of lung carcinoma. COMPARISON: Comparison is made to ultrasound of the chest earlier today (12/17/2016, 1550 hours). TECHNIQUE: Case was discussed with Dr. Johnson. There is concern for infected fluid collection (abscess) or underlying metastatic disease. Ultrasound-guided cyst drainage and cyst wall biopsy has been requested. Study performed at bedside in critical care unit. Informed consent was obtained and the patient was advised of the usual risks and complications of drainage procedure and biopsy, including infection, bleeding and allergy. Supine position. PROCEDURE/FINDINGS: Ultrasound guided cyst drainage: Following sterile preparation and 1% lidocaine local anesthetic, ultrasound guidance was utilized to place a 16-gauge angiocatheter in caudal aspect of a large 15 cm cystic mass in the left anterior lower thorax. A small amount of proteinaceous kurt fluid (10 ml ) as aspirated and sent for laboratory studies (cell count differential, protein, glucose, LDH, gram stain culture, AFB stain culture, fungal stain culture, cytology). Subsequently, utilizing a 0.038 guidewire, a 6-Moldovan cope loop catheter was inserted into the fluid collection, yielding 650 ml of proteinaceous fluid. Follow-up imaging demonstrated sub total collapse of the cystic fluid collection with residual thickening of the cyst wall. The catheter was secured to the patient's side (8-Moldovan Uresil device, Tegaderm), and placed to Juan-Tadeo bulb suction. Ultrasound-guided cyst wall needle biopsy: Utilizing the and adjacent incision site, a 19-gauge coaxial needle was inserted into the collapsed cyst directed into the posterior wall of the cyst. Four core biopsy samples were obtained with a 20-gauge biopsy instrument (placed in formalin). Fluid and tissue samples were transferred to the laboratory. The patient tolerated the procedure reasonably well and there were no complications. IMPRESSION: 1. Successful ultrasound-guided drainage of left chest wall cyst with 6-Moldovan cope loop catheter (yielding 650 ml of proteinaceous kurt fluid). 2. Successful ultrasound-guided biopsy of left chest cyst wall. 3. Laboratory studies are pending. 4. Findings discussed with Dr. Johnson.
--- NOTE | 2016-12-18 14:21 | DIAGNOSTIC IMAGING REPORT ---
PROCEDURE: US SOFT TISSUE/MUS FLUID DRAIN INDICATION: Large cystic chest wall mass (15 cm). Fever. Chills. History of lung carcinoma. COMPARISON: Comparison is made to ultrasound of the chest earlier today (12/17/2016, 1550 hours). TECHNIQUE: Case was discussed with Dr. Johnson. There is concern for infected fluid collection (abscess) or underlying metastatic disease. Ultrasound-guided cyst drainage and cyst wall biopsy has been requested. Study performed at bedside in critical care unit. Informed consent was obtained and the patient was advised of the usual risks and complications of drainage procedure and biopsy, including infection, bleeding and allergy. Supine position. PROCEDURE/FINDINGS: Ultrasound guided cyst drainage: Following sterile preparation and 1% lidocaine local anesthetic, ultrasound guidance was utilized to place a 16-gauge angiocatheter in caudal aspect of a large 15 cm cystic mass in the left anterior lower thorax. A small amount of proteinaceous kurt fluid (10 ml ) as aspirated and sent for laboratory studies (cell count differential, protein, glucose, LDH, gram stain culture, AFB stain culture, fungal stain culture, cytology). Subsequently, utilizing a 0.038 guidewire, a 6-Congolese cope loop catheter was inserted into the fluid collection, yielding 650 ml of proteinaceous fluid. Follow-up imaging demonstrated sub total collapse of the cystic fluid collection with residual thickening of the cyst wall. The catheter was secured to the patient's side (8-Congolese Uresil device, Tegaderm), and placed to Juan-Tadeo bulb suction. Ultrasound-guided cyst wall needle biopsy: Utilizing the and adjacent incision site, a 19-gauge coaxial needle was inserted into the collapsed cyst directed into the posterior wall of the cyst. Four core biopsy samples were obtained with a 20-gauge biopsy instrument (placed in formalin). Fluid and tissue samples were transferred to the laboratory. The patient tolerated the procedure reasonably well and there were no complications. IMPRESSION: 1. Successful ultrasound-guided drainage of left chest wall cyst with 6-Congolese cope loop catheter (yielding 650 ml of proteinaceous kurt fluid). 2. Successful ultrasound-guided biopsy of left chest cyst wall. 3. Laboratory studies are pending. 4. Findings discussed with Dr. Johnson.
--- NOTE | 2016-12-18 17:58 | NUR ---
JOSSELIN drain removed, had 50 cc of pinkish, cloudy fluid. Pt. med for pain prior to removal. Family in room visiting with pt.
--- NOTE | 2016-12-18 21:11 | NUR ---
PT ALERT AND ORIENTED, COOPERATIVE WITH CARE. NO DISTRESS NOTED. PT SITTING UP IN BED, WATCHING TV. PT ABLE TO USE CALL LIGHT AND MAKE NEEDS KNOWN. PT C/O LEFT SIDED CHEST PAIN WHERE THE JOSSELIN WAS LOCATED; DRESSING TO LEFT CHEST C/D/I. IV IN LAC FLUSHED WELL. VSS. FRESH ICE WATER GIVEN. NO OTHER COMPLAINTS. CALL LIGHT IN REACH, BED IN LOWEST POSITION [facility].
[2016-12-19 02:23] VITALS: BP 140/59
[2016-12-19 06:33] VITALS: BP 108/52
--- NOTE | 2016-12-19 07:49 | Discharge Summary ---
Discharge Summary Report Admit Date 12/17/16 Discharge Date 12/19/16 Admission Diagnosis 1. Lung CA 2. Leukocytosis 3. Rule out sepsis 4. Hypertension 5. Hyperlipidemia 6. BPH 7. Coronary artery disease 8. Gastroesophageal reflux Discharge Diagnosis 1. Lung CA 2. Leukocytosis-resolved 3. Sepsis-ruled out 4. Hypertension 5. Hyperlipidemia 6. BPH 7. Coronary artery disease 8. Gastroesophageal reflux Brief History he patient is a 71-year-old white male with a significant past medical history of lung CVA, gastroesophageal reflux, BPH, hypertension, hyperlipidemia, tension headache, coronary artery disease, who presented to [facility] emergency department secondary to complaints of fever and chills of 24 hours duration. [facility] ER evaluation was consistent with findings of occult infection/rule out sepsis. Secondary to the above, the patient was admitted by Dio Ortez M.D. for further evaluation and treatment. For other history present illness, past medical history, family history, social history, review of systems, and admission physical examination please see the patient's history and physical examination and ER visit note in the patient's medical record. Hospital Course The following problems and their management were noted during the patient's hospitalization: 1. Lung CA Stable. The patient underwent aspiration of fluid collection/seroma present left anterior chest wall. Cultures were negative without evidence of infectious process. Biopsy taken. Follow-up with Dr. Chi (Oncology) next week. 2. Leukocytosis-resolved Patient presented with findings of leukocytosis and suspected sepsis. This resolved during his hospital stay. WBC normalized at discharge. 3. Sepsis-ruled out The patient presented with findings of suspected sepsis. Blood cultures, seroma cultures, urinalysis, chest x-ray, were all negative. The patient was empirically treated with antimicrobials until cultures negative. The patient was discharged on no antimicrobial therapy. He will follow-up with oncology as noted above. 4. Hypertension The patient has a long-standing history of hypertension. He was actually hypotensive on admission. This resolved with normalization of blood pressure prior to discharge. He was discharged on a lower dose of lisinopril 10 mg by mouth twice a day. Diuretics held on discharge. Follow-up with PCP/oncology next week for reevaluation. 5. Hyperlipidemia Stable. No further evaluation. Continue outpatient medical regimen 6. BPH Stable. Not problematic. Continue Flomax. 7. Coronary artery disease Stable. No history of chest pain. Outpatient follow-up with PCP. 8. Gastroesophageal reflux Stable. Continue outpatient medical regimen. Discharge Instructions/Meds For other recommendations regarding discharge diet, activity, followup, and discharge medications please see the patient's discharge instructions. Discharge condition: Fair, improved Greater than 30 min. was spent in the patient's discharge preparation including discharge interview and physical examination, progress note, discharge instructions, and discharge summary The patient was interviewed and examined on the day of discharge. E&M Codes Discharge: Inpt >30 min spent/49002
--- NOTE | 2016-12-19 07:49 | Discharge Summary ---
Discharge Summary Report Admit Date 12/17/16 Discharge Date 12/19/16 Admission Diagnosis 1. Lung CA 2. Leukocytosis 3. Rule out sepsis 4. Hypertension 5. Hyperlipidemia 6. BPH 7. Coronary artery disease 8. Gastroesophageal reflux Discharge Diagnosis 1. Lung CA 2. Leukocytosis-resolved 3. Sepsis-ruled out 4. Hypertension 5. Hyperlipidemia 6. BPH 7. Coronary artery disease 8. Gastroesophageal reflux Brief History he patient is a 71-year-old white male with a significant past medical history of lung CVA, gastroesophageal reflux, BPH, hypertension, hyperlipidemia, tension headache, coronary artery disease, who presented to [facility] emergency department secondary to complaints of fever and chills of 24 hours duration. [facility] ER evaluation was consistent with findings of occult infection/rule out sepsis. Secondary to the above, the patient was admitted by Dio Ortez M.D. for further evaluation and treatment. For other history present illness, past medical history, family history, social history, review of systems, and admission physical examination please see the patient's history and physical examination and ER visit note in the patient's medical record. Hospital Course The following problems and their management were noted during the patient's hospitalization: 1. Lung CA Stable. The patient underwent aspiration of fluid collection/seroma present left anterior chest wall. Cultures were negative without evidence of infectious process. Biopsy taken. Follow-up with Dr. Chi (Oncology) next week. 2. Leukocytosis-resolved Patient presented with findings of leukocytosis and suspected sepsis. This resolved during his hospital stay. WBC normalized at discharge. 3. Sepsis-ruled out The patient presented with findings of suspected sepsis. Blood cultures, seroma cultures, urinalysis, chest x-ray, were all negative. The patient was empirically treated with antimicrobials until cultures negative. The patient was discharged on no antimicrobial therapy. He will follow-up with oncology as noted above. 4. Hypertension The patient has a long-standing history of hypertension. He was actually hypotensive on admission. This resolved with normalization of blood pressure prior to discharge. He was discharged on a lower dose of lisinopril 10 mg by mouth twice a day. Diuretics held on discharge. Follow-up with PCP/oncology next week for reevaluation. 5. Hyperlipidemia Stable. No further evaluation. Continue outpatient medical regimen 6. BPH Stable. Not problematic. Continue Flomax. 7. Coronary artery disease Stable. No history of chest pain. Outpatient follow-up with PCP. 8. Gastroesophageal reflux Stable. Continue outpatient medical regimen. Discharge Instructions/Meds For other recommendations regarding discharge diet, activity, followup, and discharge medications please see the patient's discharge instructions. Discharge condition: Fair, improved Greater than 30 min. was spent in the patient's discharge preparation including discharge interview and physical examination, progress note, discharge instructions, and discharge summary The patient was interviewed and examined on the day of discharge. E&M Codes Discharge: Inpt >30 min spent/[id number]
--- NOTE | 2016-12-19 08:31 | Provider's Discharge Care Plan ---
Problem, Goal, Plan Problem List 1. Lung cancer Goals: Improve disease control, Prevent disease progress Instructions: Follow up as directed, Take meds as directed
--- NOTE | 2016-12-19 08:31 | Provider's Discharge Care Plan ---
Problem, Goal, Plan Problem List 1. Lung cancer Goals: Improve disease control, Prevent disease progress Instructions: Follow up as directed, Take meds as directed
--- NOTE | 2016-12-19 08:36 | NUR ---
PATIENT IS ALERT AND ORIENTED, PLEASANT. DENIES ANY PAIN AT THIS TIME. AWAITING POSSIBLE DISCHARGE ORDERS. WILL CONTINUE TO MONITOR.
[2016-12-19] MEDS ORDERED: VICODIN EQUIVAL1 TAB PO (09:23)
--- NOTE | 2016-12-19 09:36 | NUR ---
GONE OVER THE DISCHARGE INSTRUCTIONS WITH THE PATIENT REGARDING THE NEW MEDICATION OF VICODIN, AND THE CHAGNES MADE BY DR JOSHI ON COUPLE OF OTHER MEDICATIONS. GIVEN THE HARD COPY TO THE PATIENT. PATIENT IS AWARE THAT HE HAS TO CALL DR Dang'S OFFICE TO FOLLOW UP THIS WEEK. PATIENT SHOWED UNDERSTANDING, IV DC'D CATHETER INTACT. TO DRIVE PATIENT HOME. ESCORTED OUT BY THE FACILITY TECH IN WHEELCHAIR.
== END 2016-12-19 09:45 | disposition home or self-care (01) | DRG 864 ==
LOC: ED SRH 23:03 → TRANS SRH 12-17 05:03 → CC SRH 12-17 05:03 → TRANS SRH 12-17 05:03 → CC SRH 12-17 05:41
PROVIDERS: ADMIT Family Medicine
PROC: 0J9630Z Drainage of Chest Subcutaneous Tissue and Fascia with Drainage Device, Percutaneous Approach (ICD-10-PCS; principal; 2016-12-17)
PROC: 0JB63ZX Excision of Chest Subcutaneous Tissue and Fascia, Percutaneous Approach, Diagnostic (ICD-10-PCS; 2016-12-17)
DX: R50.9 Fever, unspecified (principal); L76.34 Postprocedural seroma of skin and subcutaneous tissue following other procedure; C34.12 Malignant neoplasm of upper lobe, left bronchus or lung; E86.1 Hypovolemia; D72.829 Elevated white blood cell count, unspecified; I95.9 Hypotension, unspecified; Z95.828 Presence of other vascular implants and grafts

== ENCOUNTER 2017-02-09 07:41 | Outpatient (CLI) | payer OTHER ==
[~2017-02-09 07:41] MED LIST changes: +ASPIRIN 81 LOW81 MG PO; +VICODIN EQUIVAL1 TAB PO
--- NOTE | 2017-02-09 11:12 | DIAGNOSTIC IMAGING REPORT ---
PROCEDURE: CT THORAX ABD PELVIS W/CONT INDICATION: Lung CA, follow-up. TECHNIQUE: 140 ml of Isovue 300 injected intravenously and axial images were obtained of the entire thorax, abdomen, and pelvis with sagittal and coronal reformations. COMPARISON: CT chest 12/10/2016 and FINDINGS: Suboptimal IV injection. THORAX: Status post left upper lobectomy and left hemithorax volume loss, stable. Previously noted right lower lobe superior segment necrotic mass has decreased in size and measures 1.6 cm, previously 2.2 cm. There are no new pulmonary nodules. No adenopathy. New small right pleural effusion. Slight progression of small left pleural effusion. Stable right subclavian Port-A-Cath. Dense coronary atherosclerosis. Heart size is normal. Partially visualized 12.8 cm left chest wall cystic mass ( previously 11.5 cm) with partial destruction of the left seventh rib anterolaterally and partial erosion of the eighth rib, unchanged. Old right tenth rib fracture. Moderate degenerative changes of the spine. ABDOMEN: Stable 3 mm hypodensity in the right hepatic lobe medially. Gallbladder pancreas, spleen, adrenal glands and kidneys are normal. Moderate hiatal hernia. Mild atherosclerosis of the aorta. Nonspecific bowel gas pattern. No ascites. Mild L3-4 spinal stenosis. Moderate degenerative changes. PELVIS: Normal appendix. Enlarged prostate (5.5 cm). Normal bladder. No evidence of pelvic mass, free fluid or free air. 2.2 cm fusiform aneurysmal dilation of the left common iliac artery. No suspicious osseous lesions. IMPRESSION: 1. Status post left upper lobectomy 2. Decreasing size of the right lower lobe superior segment necrotic mass but new small right pleural effusion and slight progression of small left pleural effusion. 3. Slight progression of left chest wall necrotic mass with stable lysis of the left seventh and erosion of the left eighth ribs 4. Dense coronary atherosclerosis. 5. 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
== END 2017-02-09 23:00 ==
LOC: CT SRH 07:41
DX: C34.90 Malignant neoplasm of unspecified part of unspecified bronchus or lung (principal); J90 Pleural effusion, not elsewhere classified; I72.3 Aneurysm of iliac artery; I25.10 Atherosclerotic heart disease of native coronary artery without angina pectoris

== ENCOUNTER → 2017-04-17 | Outpatient (CLI) | payer OTHER ==
--- NOTE | 2017-04-17 10:42 | DIAGNOSTIC IMAGING REPORT ---
PROCEDURE: CT THORAX ABD PELVIS W/CONT INDICATION: LUNG CANCER TECHNIQUE: 125 ml of Isovue 300 injected intravenously and axial images were obtained of the entire thorax, abdomen, and pelvis with sagittal and coronal reformations. COMPARISON: 02/09/2017, 10/06/2016 FINDINGS: THORAX: Right IJ Mediport in place with the tip in the proximal SVC. Left upper lobectomy changes and volume loss left hemithorax. Normal sized heart with slight thickening of the pericardium. There is enteric contrast in the distal esophagus. Surgical clips are present in the right axilla. No adenopathy. Nonenlarged mediastinal lymph nodes present. Superior segment right lower lobe cavitary lung mass measures 19 mm, previously 18 mm. The aerated portion has increased in size. The solid/fluid portion has decreased. There is scarring laterally in the left lung. Cystic chest wall mass is relatively stable measuring approximately 14 cm in greatest dimension. Remote right tenth rib fracture with nonunion. Mild degenerative changes in the thoracic spine. No new osseous lesion. ABDOMEN: Small fat containing hiatal hernia. The liver, gallbladder, adrenal glands, spleen, pancreas, kidneys, retroperitoneal vasculature and ureters appear normal. Minor aortic atherosclerotic calcification. No unusual calcifications. No suspicious mass or adenopathy. The stomach and other bowel loops appear normal. No mesenteric inflammation. Intact anterior abdominal wall. No free fluid or free air. PELVIS: Normal appendix, pelvic bowel loops, and colon. Moderate prostatomegaly. Normal partially filled urinary bladder, reproductive structures, pelvic vessels, and lymph nodes. No suspicious adenopathy, soft tissue mass, or free pelvic fluid. Degenerative changes of the endplates and discs in the lower thoracic and upper lumbar spine. No suspicious osseous lesions. IMPRESSION: 1. Evolution of the superior segment right lower lobe cavitary mass with increase in aerated portion but decrease in the solid portion. 2. Resolution of bilateral pleural effusions. 3. Stable size of cystic left chest wall mass. 4. No evidence of new metastatic disease in the chest, abdomen, or pelvis. All CT scans at this facility use dose modulation, iterative reconstruction, and/or weight-based dosing when appropriate to reduce radiation dose to as low as reasonably achievable.
== END ==
LOC: CT SRH 07:36
DX: C34.90 Malignant neoplasm of unspecified part of unspecified bronchus or lung (principal); J90 Pleural effusion, not elsewhere classified

== ENCOUNTER 2017-05-29 08:14 | Outpatient (CLI) | payer OTHER ==
--- NOTE | 2017-05-29 10:54 | DIAGNOSTIC IMAGING REPORT ---
PROCEDURE: CT THORAX ABD PELVIS W/CONT INDICATION: LUNG CA, follow-up TECHNIQUE: 150 ml of Isovue 300 injected intravenously and axial images were obtained of the entire thorax, abdomen, and pelvis with sagittal and coronal reformations. COMPARISON: CT chest/abdomen/pelvis 04/17/2017. FINDINGS: THORAX: Status post left upper lobectomy with stable volume loss. Continued improvement of 1.2 cm necrotic mass in the right lower lobe superior segment (previously 1.9 cm). There are no new pulmonary nodules. Stable small left pleural effusion. New small right pleural effusion. There is no supraclavicular, axillary, mediastinal or hilar adenopathy. Stable right subclavian Port-A-Cath. No appreciable change in the 13.3 x 12.9 x 10.1 cm cystic mass in the left chest wall with erosion of the adjacent sixth and seventh ribs. Moderate degenerative changes of the spine. ABDOMEN: The liver, gallbladder, pancreas, spleen, adrenal glands and kidneys are unremarkable. Mild atherosclerosis of the aorta. No adenopathy. Moderate distention of the redundant sigmoid colon extending to the upper abdomen with large amount of stool backing up to the ascending colon. Mild fat containing hiatal hernia. Moderate degenerative changes of the spine. PELVIS: Normal appendix. Moderately enlarged prostate. Normal bladder. No pelvic mass, adenopathy or free fluid. No suspicious osseous lesions. IMPRESSION: 1. Status post left upper lobectomy with stable left pleural effusion and new small right pleural effusion 2. Continued improvement of 1.2 cm of superior some right upper lobe cavitary mass 3. Stable left chest wall cystic mass 4. Moderate distention of the redundant sigmoid colon with moderate stool more proximally. Relative mechanical obstruction is a consideration. All CT scans at this facility use dose modulation, iterative reconstruction, and/or weight-based dosing when appropriate to reduce radiation dose to as low as reasonably achievable.
== END 2017-05-29 23:00 ==
LOC: CT SRH 08:14
DX: J90 Pleural effusion, not elsewhere classified (principal); Z90.2 Acquired absence of lung [part of]

== ENCOUNTER 2017-06-04 08:46 | Outpatient (CLI) | payer OTHER ==
--- NOTE | 2017-06-04 15:52 | DIAGNOSTIC IMAGING REPORT ---
PROCEDURE: MR BRAIN W/WO CONTRAST INDICATION: LUNG CA, EVAL FOR METS FINDINGS: The patient could not tolerate the entire exam secondary to body habitus. A single sagittal T1 FLAIR sequence was obtained and demonstrated no gross abnormalities. IMPRESSION: 1. Failed exam due to the patient's size and discomfort. 2. The patient will be encouraged to reschedule at an open magnet.
== END 2017-06-04 23:00 ==
LOC: RT SRH 08:46
DX: C34.90 Malignant neoplasm of unspecified part of unspecified bronchus or lung (principal); Z53.8 Procedure and treatment not carried out for other reasons